=== PATIENT | female | born 1950 | race Caucasian/White ===

== ENCOUNTER 2017-09-15 19:08 | Inpatient (IN) ==
--- OUTSIDE RECORDS SUMMARY | 2017-09-15 19:21 | External Medical Summary ---
:1950 Author Organization [facility]. Summary purpose CCDA Sent to [facility] Chief Complaint and Reason for Visit Admit Diagnosis 1 729.5 Problem list No authorized problems tracked for continuity of care are available for this visit. Encounters No authorized problems tracked for encounter diagnoses are available for this visit. Medications No medications recorded for this patient visit Allergies, adverse reactions, alerts Allergen Category Ingredient Status Reaction Severity Onset omeprazole Drug omeprazole Active Nausea Year/Month lisinopril Drug lisinopril Active cough Year/Month aspirin Drug aspirin Active Rash Year/Month Augmentin Drug Augmentin Active Augmentin Drug Amoxicillin Active Augmentin Drug clavulanic acid Active Altace Drug Altace Active Altace Drug ramipril Active Immunizations No immunizations recorded for this patient visit Relevant diagnostic tests and/or laboratory data No authorized results are available for this patient visit History of procedures No procedures recorded for this patient visit. Functional status No functional or cognitive status observations are available for this visit. Vital signs No authorized vital signs are available for this visit. Social history No Social History or smoking status observations were recorded for this visit. ( Unknown if ever smoked.) Treatment Plan No treatment plan text is available for this visit. Hospital discharge instructions No discharge instruction text is available for this visit.
--- OUTSIDE RECORDS SUMMARY | 2017-09-15 19:21 | External Medical Summary ---
:1950 Author Organization [facility]. Summary purpose CCDA Sent to [facility] Chief Complaint and Reason for Visit No authorized Reason for Visit (Admitting Diagnosis) is available for this visit. Problem list No authorized problems tracked for [...] visit Relevant diagnostic tests and/or laboratory data RESULTS Chemistry Group [id number]:00 Result Normal Range Units Sodium 140 134-145 mmol/L Potassium 4.4 3.6-5.0 mmol/L Chloride 102 98-107 mmol/L CO2 26 22-30 mmol/L Glucose 95 75-110 mg/dl BUN H 22 9-20 mg/dl Creatinine H 1.81 0.8-1.7 mg/dl Calcium L 8.1 8.4-10.2 mg/dl History of procedures No procedures recorded for [...]
--- OUTSIDE RECORDS SUMMARY | 2017-09-15 19:21 | External Medical Summary ---
:1950 Author Organization [facility]. Summary purpose CCDA Sent to [facility] Chief Complaint and Reason for Visit No [...] for this patient visit History of procedures Procedure Code Code Type Description Date Performed Performing Physician 59775 CPT-4 KHUSHI, DNA, DIR 12-10-2016 CARLITOS ULLOM [place] PROBE 86427 CPT-4 MCMILLAN VAG, DNA, DIR 12-10-2016 CARLITOS ULLOM [place] PROBE 27078 CPT-4 TRICHOMONAS VAGIN, DIR 12-10-2016 CARLITOS ULLOM [place] PROBE Functional status No functional or cognitive status [...]
--- OUTSIDE RECORDS SUMMARY | 2017-09-15 19:21 | External Medical Summary ---
:1950 Author Organization [facility]. Summary purpose CCDA Sent to [facility] Chief Complaint and Reason for Visit No [...] tests and/or laboratory data RESULTS Chemistry Group [id number]:00 Result Normal Range Units Sodium 134 134-145 mmol/L Potassium H 5.1 3.6-5.0 mmol/L Chloride 98 98-107 mmol/L CO2 24 22-30 mmol/L Glucose H 117 75-110 mg/dl BUN 20 9-20 mg/dl Creatinine 1.46 0.8-1.7 mg/dl eGFR 36 ml/min. Calcium 8.9 8.4-10.2 mg/dl Special Chemistry Group [id number]:00 Result Normal Range Units Hemoglobin A1C H 7.5 4.2-6.5 % History of procedures No procedures recorded for [...]
--- OUTSIDE RECORDS SUMMARY | 2017-09-15 19:21 | External Medical Summary ---
:1950 Author Organization [facility]. Summary purpose CCDA Sent to [facility] Chief Complaint and Reason for Visit Admit Diagnosis 1 FEVER Problem list Condition Status Certainty Chronicity Onset .Fever; Verified UTI Resolved Encounters The following conditions tracked for encounter diagnoses were recorded for this visit: Finding or Diagnosis Status Certainty Chronicity Onset .Fever; Verified UTI Resolved Medications Discharge Medications Status Medication Directions Current acetaminophen (TYLENOL) 500 mg: TABLET 500 MG oral EVERY FOUR HOURS NEEDED for PAIN OR FEVER Current Aspirin Child 81 mg chewable tablet 1 tab(s) oral DAILY Current Bactrim DS 800 mg-160 mg tablet 800 tab(s) oral BID Current Carafate 1 gram tablet 1 tab(s) oral BEFORE MEALS Current Cheratussin 100 mg/5 mL syrup 5 milliliter(s) oral oral BID NEEDED for cough Current cholecalciferol (vitamin D3) 1,000 unit 1 tab(s) oral DAILY capsule Current docusate sodium 100 mg tablet 1 capsule(s) oral DAILY Current escitalopram 20 mg tablet 1 tab(s) oral DAILY Current hydrALAZINE 10 mg tablet 1 tab(s) oral BID Current levothyroxine 200 mcg tablet 1 tab(s) oral DAILY Current levothyroxine 25 mcg capsule 1 tab(s) oral DAILY Current losartan 50 mg tablet 1 tab(s) oral DAILY Current Multi Vitamin oral 1 tab(s) oral DAILY Current Neurontin 300 mg capsule 1 tab(s) oral HS Current Nexium 20 mg capsule,delayed release 1 tab(s) oral BEFORE BREAKFAST AND SUPPER Current [place] 5 mg-325 mg tablet 1 tab(s) oral oral TID NEEDED for pain Current propranolol ER 160 mg capsule,24 1 capsule(s) oral BID hr,extended release Current QUEtiapine 50 mg tablet 1 tab(s) oral DAILY AT 8 AM Current traZODone 50 mg tablet 1-2 tab(s) oral HS Current Tums 200 mg calcium (500 mg) chewable 1 tab(s) oral oral TID NEEDED tablet for reflux Current Vitamin B-12 1,000 mcg tablet 1 tab(s) oral DAILY Current ziprasidone 80 mg capsule 1 capsule(s) oral BID Stopped acetaminophen 500 mg capsule 1 capsule(s) oral EVERY SIX HOURS NEEDED 1-2 tabs Stopped acetaminophen 500 mg tablet 2 tab(s) oral HS NEEDED Stopped polyethylene glycol 3350 17 gram/dose 17 gram(s) oral DAILY oral powder 1 capful (17grams) in 8 oz water Stopped Simethicone-80 80 mg chewable tablet 1 tab(s) oral AFTER MEALS NEEDED Stopped traMADol 50 mg tablet 1-2 tab(s) oral NEEDED TID prn pain Allergies, adverse reactions, alerts Allergen Category Ingredient [...] Relevant diagnostic tests and/or laboratory data RESULTS :45:00 Discharge Summary Patient ambulated to waiting halfway van with ease and fastened her seat belt in the front seat. Departed at this time. [id number]:54:06 Discharge Summary Pt admitted with abd pain and fever - improves on IV antibx. Known UTI. [id number]:10:57 Discharge Summary pt here with fever and unable to void CBC :05:00 Result Normal Range Units WBC L 2.99 4.8-10.8 x103/mm3 Neutrophil % 59.2 50-70 % Lymph % L 11.0 20-50 % [place] % H 20.4 1.0-9.0 % Eosinophil % H 8.7 0-4 % Basophil % 0.7 0-2 % Neutrophil # L 1.77 3.0-7.0 x103/mm3 Lymph # L 0.33 1.0-4.0 x103/mm3 [place] # 0.61 0.0-0.8 x103/mm3 Eosinophil # 0.26 0-0.5 x103/mm3 Basophil # 0.02 0-0.2 x103/mm3 RBC L 3.43 4.20-5.40 x103/mm3 HGB L 10.6 12.0-16.0 g/dl HCT L 32.3 37.0-47.0 % MCV 94.2 81-99 FL MCH 30.9 27.0-31.0 pg MCHC 32.8 32.0-36.0 g/dl RDW L 11.6 12-15 % Platelet L 118 150-400 x103/mm3 MPV 9.2 6.0-10.0 FL :35:00 Result Normal Range Units WBC 5.79 4.8-10.8 x103/mm3 Neutrophil % H 78.1 50-70 % Lymph % L 3.5 20-50 % [place] % H 14.0 1.0-9.0 % Eosinophil % H 4.1 0-4 % Basophil % 0.3 0-2 % Neutrophil # 4.52 3.0-7.0 x103/mm3 Lymph # L 0.20 1.0-4.0 x103/mm3 [place] # H 0.81 0.0-0.8 x103/mm3 Eosinophil # 0.24 0-0.5 x103/mm3 Basophil # 0.02 0-0.2 x103/mm3 RBC L 3.91 4.20-5.40 x103/mm3 HGB 12.3 12.0-16.0 g/dl HCT L 36.7 37.0-47.0 % MCV 93.9 81-99 FL MCH H 31.5 27.0-31.0 pg MCHC 33.5 32.0-36.0 g/dl RDW 12.0 12-15 % Platelet L 135 150-400 x103/mm3 MPV 9.6 6.0-10.0 FL :50:00 Result Normal Range Units WBC 5.62 4.8-10.8 x103/mm3 Neutrophil % H 80.7 50-70 % Lymph % L 2.3 20-50 % [place] % H 14.8 1.0-9.0 % Eosinophil % 1.8 0-4 % Basophil % 0.4 0-2 % Neutrophil # 4.54 3.0-7.0 x103/mm3 Lymph # L 0.13 1.0-4.0 x103/mm3 [place] # H 0.83 0.0-0.8 x103/mm3 Eosinophil # 0.10 0-0.5 x103/mm3 Basophil # 0.02 0-0.2 x103/mm3 RBC L 4.14 4.20-5.40 x103/mm3 HGB 12.8 12.0-16.0 g/dl HCT 38.4 37.0-47.0 % MCV 92.8 81-99 FL MCH 30.9 27.0-31.0 pg MCHC 33.3 32.0-36.0 g/dl RDW L 11.7 12-15 % Platelet 156 150-400 x103/mm3 MPV 9.3 6.0-10.0 FL Urinalysis [id number]:30:00 Result Normal Range Units Site CATH Color Yellow Urine Appearance Clear Specific [place] 1.020 1.005-1.030 pH 6.2 5.0-9.0 Protein AB 1+ Negative Glucose Negative Negative Ketones Negative Negative Bilirubin Negative Negative Blood Negative Negative Nitrite Negative Negative Urobilinogen H 1.0 0.20 mg/dl Leukocyte Negative Negative Chemistry Group [id number]:00 Result Normal Range Units Sodium L 133 134-145 mmol/L Potassium 4.9 3.6-5.0 mmol/L Chloride 103 98-107 mmol/L CO2 24 22-30 mmol/L Glucose H 156 75-110 mg/dl BUN 20 9-20 mg/dl Creatinine H 1.78 0.8-1.7 mg/dl eGFR 28 ml/min. Calcium L 7.8 8.4-10.2 mg/dl [id number]:35:00 Result Normal Range Units Sodium 134 134-145 mmol/L Potassium 5.0 3.6-5.0 mmol/L Chloride 99 98-107 mmol/L CO2 25 22-30 mmol/L Glucose H 159 75-110 mg/dl BUN H 25 9-20 mg/dl Creatinine H 2.37 0.8-1.7 mg/dl eGFR 20 ml/min. Calcium L 8.0 8.4-10.2 mg/dl [id number]:50:00 Result Normal Range Units Sodium 135 134-145 mmol/L Result Amended on 2016-07-31 at 10:28:09. Previous status was FR. Potassium H 5.1 3.6-5.0 mmol/L Result Amended on 2016-07-31 at 10:28:09. Previous status was FR. Chloride 98 98-107 mmol/L Result Amended on 2016-07-31 at 10:28:09. Previous status was FR. CO2 28 22-30 mmol/L Result Amended on 2016-07-31 at 10:28:09. Previous status was FR. Glucose H 154 75-110 mg/dl Result Amended on 2016-07-31 at 10:28:09. Previous status was FR. BUN H 24 9-20 mg/dl Result Amended on 2016-07-31 at 10:28:09. Previous status was FR. Creatinine HC 2.56 0.8-1.7 mg/dl Result Amended on 2016-07-31 at 10:28:09. Previous status was FR. CALLED TO NURSING/YEISON @ 10:25 BY MR eGFR 19 ml/min. Result Amended on 2016-07-31 at 10:28:09. Previous status was FR. Total Protein 6.5 6.3-8.2 g/dl Result Amended on 2016-07-31 at 10:28:09. Previous status was FR. Albumin L 3.3 3.5-5.0 g/dl Result Amended on 2016-07-31 at 10:28:09. Previous status was FR. Calcium L 8.2 8.4-10.2 mg/dl Result Amended on 2016-07-31 at 10:28:09. Previous status was FR. Alk Phos 121 38-126 U/L Result Amended on 2016-07-31 at 10:28:09. Previous status was FR. AST H 93 14-36 U/L Result Amended on 2016-07-31 at 10:28:09. Previous status was FR. ALT 53 11-66 U/L Result Amended on 2016-07-31 at 10:28:09. Previous status was FR. T Bili .7 0.2-1.3 mg/dl Result Amended on 2016-07-31 at 10:28:09. Previous status was FR. A/G Ratio 1.0 Ratio Result Amended on 2016-07-31 at 10:28:09. Previous status was FR. Urinalysis with Microscopic [id number]:30:00 Result Normal Range Units Site CATH Color Yellow Urine Appearance Clear Specific [place] 1.020 1.005-1.030 pH 6.2 5.0-9.0 Protein AB 1+ Negative Glucose Negative Negative Ketones Negative Negative Bilirubin Negative Negative Blood Negative Negative Nitrite Negative Negative Urobilinogen H 1.0 0.20 mg/dl Leukocyte Negative Negative History of procedures No procedures recorded for this patient visit. Functional status Functional Status Finding Observation Time Dexterity Right-handed :00 Weight Bearing Statu Full 22-21-665714:05 Transferring/Ambulat Needs Assistance :00 Bathing Needs Assistance : Dressing Needs Assistance : Eating Independent : Drinking Needs Assistance : Toileting Needs Assistance : Able to Turn Self in Independent : Cognitive Status Finding Observation Time Level of Consciousne Alert 46-64-156860:21 Oriented to Person Yes :[address] Yes :21 Oriented to Time Yes :21 Combative Resolved 25-17-823209:00 Vital signs Type Value Date Respirations 20 57-67-759976:40 Pulse 64 51-07-229616:40 O2 Saturation 96% 11-78-897900:40 Systolic Blood Press 150mm/HG 27-29-347535:40 Diastolic Blood Pres 79mm/HG 17-20-687075:40 Temperature (Fahr) 98.3Degrees 31-92-068649:40 Height 63in :16 Weight 219.6LB 16-41-468819:16 Social history Type Value Smoking Status NEVER SMOKER Treatment Plan Treatment Plan at [facility] to [facility]. Hospital discharge instructions Diagnosis Abdominal pain Diet Low phosphorus, low potassium diet, may have diet holiday 1 meal/week. fluid restrictions or 1.5 liters/24 hrs. May have an extra 250 cc/24 hrs when she is feeling poorly. Consistent carbohydrate diet. Activity Level As tolerated, may participate in facility activities, may have whirlpool bath, may go out on therapeutic visits with necessary medications. Personal Items Retur Blankets. Med Dispensed by [facility] Flu Vaccine Given Current/Not Needed Pneumonia Vaccine Gi Current/Not Needed Follow up with [facility] Comment: Resident follow-up in clinic/office: In [place] at next visit day- sooner if problems or concerns.
--- OUTSIDE RECORDS SUMMARY | 2017-09-15 19:21 | External Medical Summary ---
:1950 Author Organization [facility]. Summary purpose CCDA Sent to [facility] Chief Complaint and Reason for Visit No authorized Reason for Visit (Admitting Diagnosis) is available for this visit. Problem list No authorized problems tracked for continuity of care are available for this visit. Encounters No authorized problems tracked for encounter diagnoses are available for this visit. Medications No home medications recorded for this patient visit Allergies, [...] tests and/or laboratory data RESULTS Chemistry Group [id number]:35:00 Sodium L 129 Potassium 4.9 Chloride L 91 CO2 29 Glucose 82 BUN H 29 Creatinine H 1.8 Calcium 8.9 History of procedures Procedure Code Code Type Description Date Performed Performing Physician 72659 CPT-4 METABOLIC PANEL TOTAL 04-02-2015 CARLITOS SHAWN SHANTELRAFA WALLACE Functional status No functional or cognitive status [...]
--- OUTSIDE RECORDS SUMMARY | 2017-09-15 19:21 | External Medical Summary ---
:1950 Author Organization [facility]. Summary purpose CCDA Sent to [facility] Chief Complaint and Reason for Visit [...] tests and/or laboratory data RESULTS Chemistry Group [id number]:10:00 Result Normal Range Units Sodium 139 134-145 mmol/L Potassium H 5.3 3.6-5.0 mmol/L Chloride 101 98-107 mmol/L CO2 28 22-30 mmol/L Glucose 107 75-110 mg/dl BUN H 24 9-20 mg/dl Creatinine H 2.02 0.8-1.7 mg/dl eGFR 25 ml/min. Calcium 8.6 8.4-10.2 mg/dl Special Chemistry Group [id number]:10:00 Result Normal Range Units Troponin I < 0.06 ng/ml NEGATIVE - 0.06-0.30 ng/ml INCONCLUSIVE - 0.31-0.64 ng/ml; Suggest Repeating in 2-4 hours POSITIVE - >0.64 ng/ml; Probable AMI BNP 29.0 0-100 pg/ml History of procedures Procedure Code Code Type Description Date Performed Performing Physician 81318 CPT-4 METABOLIC PANEL TOTAL 01-30-2016 DENISHA WALLACE 02775 CPT-4 NATRIURETIC PEPTIDE 01-30-2016 DENISHA HERNANDEZ 65903 CPT-4 ASSAY OF TROPONIN, 01-30-2016 DENISHA WILSON Functional status No functional or cognitive status [...]
--- OUTSIDE RECORDS SUMMARY | 2017-09-15 19:21 | External Medical Summary ---
:1950 Author Organization [facility]. Summary purpose CCDA Sent to [facility] Chief Complaint and Reason for Visit No [...]
--- OUTSIDE RECORDS SUMMARY | 2017-09-15 19:21 | External Medical Summary ---
:1950 Author Organization [facility]. Summary purpose CCDA Sent to [facility] Chief Complaint and Reason for Visit [...] Relevant diagnostic tests and/or laboratory data RESULTS CBC [id number]:19:00 Result Normal Range Units WBC L 3.59 4.8-10.8 x103/mm3 Neutrophil % 52.0 50-70 % Lymph % 28.7 20-50 % [place] % H 13.4 1.0-9.0 % Eosinophil % H 5.3 0-4 % Basophil % 0.6 0-2 % Neutrophil # L 1.87 3.0-7.0 x103/mm3 Lymph # 1.03 1.0-4.0 x103/mm3 [place] # 0.48 0.0-0.8 x103/mm3 Eosinophil # 0.19 0-0.5 x103/mm3 Basophil # 0.02 0-0.2 x103/mm3 RBC L 3.76 4.20-5.40 x103/mm3 HGB 12.0 12.0-16.0 g/dl HCT L 35.6 37.0-47.0 % MCV 94.7 81-99 FL MCH H 31.9 27.0-31.0 pg MCHC 33.7 32.0-36.0 g/dl RDW L 11.9 12-15 % Platelet 204 150-400 x103/mm3 MPV 9.4 6.0-10.0 FL Chemistry Group [id number]:00 Result Normal Range Units Sodium 140 134-145 mmol/L Potassium 4.7 3.6-5.0 mmol/L Chloride 100 98-107 mmol/L CO2 28 22-30 mmol/L Glucose 96 75-110 mg/dl BUN 20 9-20 mg/dl Creatinine H 1.91 0.8-1.7 mg/dl Calcium 8.5 8.4-10.2 mg/dl Special Chemistry Group :19:00 Result Normal Range Units Hemoglobin A1C 6.1 4.2-6.5 % History of procedures Procedure Code Code Type Description Date Performed Performing Physician 60200 CPT-4 METABOLIC PANEL TOTAL 10-29-2015 [place] [address] CPT-4 COMPLETE CBC, 10-29-2015 [facility] AUTOMATED 98258 CPT-4 GLYCOSYLATED HEMOGLOBIN 10-29-2015 [facility] TEST Functional status No functional or cognitive status [...]
--- OUTSIDE RECORDS SUMMARY | 2017-09-15 19:21 | External Medical Summary ---
:1950 Author Organization [facility]. Summary purpose CCDA Sent to [facility] Chief Complaint and Reason for Visit Admit Diagnosis 1 DM2/NOS UNCOMP NSU Problem list No authorized problems tracked for [...] Relevant diagnostic tests and/or laboratory data RESULTS Special Chemistry Group [id number]:00 Result Normal Range Units Hemoglobin A1C H 7.3 4.2-6.5 % History of procedures Procedure Code Code Type Description Date Performed Performing Physician 96502 CPT-4 GLYCOSYLATED HEMOGLOBIN 02-12-2015 MIGEL CARABALLO TEST Functional status No functional or cognitive [...]
--- OUTSIDE RECORDS SUMMARY | 2017-09-15 19:21 | External Medical Summary ---
:1950 Author Organization [facility]. Summary purpose CCDA Sent to [facility] Chief Complaint and Reason for [...]
--- OUTSIDE RECORDS SUMMARY | 2017-09-15 19:21 | External Medical Summary ---
:1950 Author Organization [facility]. Summary purpose CCDA Sent to [facility] Chief Complaint and Reason for Visit [...] Relevant diagnostic tests and/or laboratory data RESULTS Urinalysis [id number]:00:00 Result Normal Range Units Site VOID Result Amended on 2017-01-04 at 15:04:04. Previous status was FR. Color Yellow Result Amended on 2017-01-04 at 15:04:03. Previous status was FR. Urine Appearance Clear Result Amended on 2017-01-04 at 15:04:03. Previous status was FR. Specific [place] 1.015 1.005-1.030 Result Amended on 2017-01-04 at 15:04:03. Previous status was FR. pH 5.5 5.0-9.0 Result Amended on 2017-01-04 at 15:04:04. Previous status was FR. Protein AB 2+ Negative Result Amended on 2017-01-04 at 15:04:04. Previous status was FR. Glucose Negative Negative Result Amended on 2017-01-04 at 15:04:04. Previous status was FR. Ketones Negative Negative Result Amended on 2017-01-04 at 15:04:04. Previous status was FR. Bilirubin Negative Negative Result Amended on 2017-01-04 at 15:04:04. Previous status was FR. Blood Negative Negative Result Amended on 2017-01-04 at 15:04:04. Previous status was FR. Nitrite Negative Negative Result Amended on 2017-01-04 at 15:04:04. Previous status was FR. Urobilinogen 0.2 0.20 mg/dl Result Amended on 2017-01-04 at 15:04:04. Previous status was FR. Leukocyte AB 1+ Negative Result Amended on 2017-01-04 at 15:04:04. Previous status was FR. SUBMITTED FOR C & S. Reference Lab Group [id number]:00 Result Normal Range Units Culture Urine See Comment .Site: Received : 01/04/17 20:26 .Order#: [id number] Urine Culture FINAL 01/06/17 07:23 S .Proteus mirabilis .10-50,000 cfu/ml . P. mirab. Antibiotic KARINA INT Ampicillin <=2 S Ampicillin/sulbactam <=2 S Cefazolin<=4 S Ceftriaxone<=1 S Ciprofloxacin <=0.25 S Gentamicin <=1 S Nitrofurantoin 128 R Piperacillin/tazobactam<=4 S Trimethoprim/Sulfa <=20 S .S=SUSCEPTIBLE I=INTERMEDIATE R=RESISTANT S-DD=SUSCEPTIBLE, DOSE DEPENDENT .S: Performed at:[facility], [place], [place] CLIA#[id number] MOREL FOR RESULTS: * - NEW RESULT - RESULT WAS MODIFIED AFTER FINAL STATUS SET Urine Culture performed at [facility] Reference Lab, [address], [place] [address] Clinical Rehab Liaison Mitzi Perkins, DO Urinalysis with Microscopic :00:00 Result Normal Range Units Site VOID Result Amended on 2017-01-04 at 15:04:04. Previous status was FR. Color Yellow Result Amended on 2017-01-04 at 15:04:03. Previous status was FR. Urine Appearance Clear Result Amended on 2017-01-04 at 15:04:03. Previous status was FR. Specific [place] 1.015 1.005-1.030 Result Amended on 2017-01-04 at 15:04:03. Previous status was FR. pH 5.5 5.0-9.0 Result Amended on 2017-01-04 at 15:04:04. Previous status was FR. Protein AB 2+ Negative Result Amended on 2017-01-04 at 15:04:04. Previous status was FR. Glucose Negative Negative Result Amended on 2017-01-04 at 15:04:04. Previous status was FR. Ketones Negative Negative Result Amended on 2017-01-04 at 15:04:04. Previous status was FR. Bilirubin Negative Negative Result Amended on 2017-01-04 at 15:04:04. Previous status was FR. Blood Negative Negative Result Amended on 2017-01-04 at 15:04:04. Previous status was FR. Nitrite Negative Negative Result Amended on 2017-01-04 at 15:04:04. Previous status was FR. Urobilinogen 0.2 0.20 mg/dl Result Amended on 2017-01-04 at 15:04:04. Previous status was FR. Leukocyte AB 1+ Negative Result Amended on 2017-01-04 at 15:04:04. Previous status was FR. SUBMITTED FOR C & S. History of procedures Procedure Code Code Type Description Date Performed Performing Physician 75372 CPT-4 URINALYSIS, AUTO, W/O 01-04-2017 DENISHA HERNANDEZ SCOPE 80940 CPT-4 URINE CULTURE/COLONY 01-04-2017 DENISHA HERNANDEZ COUNT 09307 CPT-4 MICROBE SUSCEPTIBLE, 01-04-2017 DENISHA HERNANDEZ KARINA 44849 CPT-4 URINE BACTERIA CULTURE 01-04-2017 DENISHA HERNANDEZ Functional status No functional or cognitive status [...]
--- OUTSIDE RECORDS SUMMARY | 2017-09-15 19:21 | External Medical Summary ---
:1950 Author Organization [facility]. Summary purpose CCDA Sent to [facility] Chief Complaint and Reason for [...] tests and/or laboratory data RESULTS Chemistry Group [id number]:00 Result Normal Range Units Sodium 141 134-145 mmol/L Potassium 5.0 3.6-5.0 mmol/L Chloride 103 98-107 mmol/L CO2 27 22-30 mmol/L Glucose 92 75-110 mg/dl BUN H 23 9-20 mg/dl Creatinine H 1.80 0.8-1.7 mg/dl Calcium 8.5 8.4-10.2 mg/dl History of procedures No procedures [...]
--- OUTSIDE RECORDS SUMMARY | 2017-09-15 19:21 | External Medical Summary ---
:1950 Author Organization [facility]. Summary purpose CCDA Sent to [facility] Chief Complaint and Reason for [...] tests and/or laboratory data RESULTS Chemistry Group [id number]:00 Result Normal Range Units Sodium L 133 134-145 mmol/L Potassium H 5.1 3.6-5.0 mmol/L Chloride 99 98-107 mmol/L CO2 25 22-30 mmol/L Glucose H 153 75-110 mg/dl BUN H 23 9-20 mg/dl Creatinine H 1.95 0.8-1.7 mg/dl eGFR 26 ml/min. Calcium 8.4 8.4-10.2 mg/dl History of procedures Procedure Code Code Type Description Date Performed Performing Physician 74511 CPT-4 METABOLIC PANEL TOTAL 03-03-2016 [place] [address] CPT-4 KHUSHI, DNA, DIR 03-03-2016 DENISHA HERNANDEZ PROBE 24067 CPT-4 MCMILLAN VAG, DNA, DIR 03-03-2016 DENISHA HERNANDEZ PROBE 03137 CPT-4 TRICHOMONAS VAGIN, DIR 03-03-2016 DENISHA HERNANDEZ PROBE Functional status No functional or cognitive [...]
--- OUTSIDE RECORDS SUMMARY | 2017-09-15 19:21 | External Medical Summary ---
:1950 Author Organization [facility]. Summary purpose CCDA Sent to [facility] Chief Complaint and Reason for Visit [...] diagnostic tests and/or laboratory data RESULTS CBC [id number]:40:00 Result Normal Range Units WBC 7.65 4.8-10.8 x103/mm3 Neutrophil % H 72.7 50-70 % Lymph % L 11.0 20-50 % [place] % H 11.9 1.0-9.0 % Eosinophil % 3.9 0-4 % Basophil % 0.5 0-2 % Neutrophil # 5.56 3.0-7.0 x103/mm3 Lymph # L 0.84 1.0-4.0 x103/mm3 [place] # H 0.91 0.0-0.8 x103/mm3 Eosinophil # 0.30 0-0.5 x103/mm3 Basophil # 0.04 0-0.2 x103/mm3 RBC 4.20 4.20-5.40 x103/mm3 HGB 13.2 12.0-16.0 g/dl HCT 41.1 37.0-47.0 % MCV 97.9 81-99 FL MCH H 31.4 27.0-31.0 pg MCHC 32.1 32.0-36.0 g/dl RDW 13.1 12-15 % Platelet 229 150-400 x103/mm3 MPV 9.8 6.0-10.0 FL Chemistry Group [id number]:47:00 Result Normal Range Units Total Protein 6.3 6.3-8.2 g/dl Albumin L 3.3 3.5-5.0 g/dl Alk Phos 120 38-126 U/L AST H 107 14-36 U/L ALT 54 11-66 U/L T Bili .5 0.2-1.3 mg/dl D Bili 0.0 0.0-0.3 mg/dl I Bili .1 0.0-1.1 mg/dl History of procedures Procedure Code Code Type Description Date Performed Performing Physician 51431 CPT-4 HEPATIC FUNCTION PANEL 05-21-2015 CORBY HOLT 01028 CPT-4 COMPLETE CBC, 05-21-2015 CORBY HOLT AUTOMATED Functional status No functional or cognitive status [...]
--- OUTSIDE RECORDS SUMMARY | 2017-09-15 19:21 | External Medical Summary ---
:1950 Author Organization [facility]. Summary purpose CCDA Sent to [facility] Chief Complaint and Reason for Visit [...]
--- OUTSIDE RECORDS SUMMARY | 2017-09-15 19:21 | External Medical Summary ---
:1950 Author Organization [facility]. Summary purpose CCDA Sent to [facility] Chief Complaint and Reason for [...] diagnostic tests and/or laboratory data RESULTS CBC [id number]:40:00 Result Normal Range Units WBC L 4.16 4.8-10.8 x103/mm3 Neutrophil % 57.0 50-70 % Lymph % 24.3 20-50 % [place] % H 13.2 1.0-9.0 % Eosinophil % H 5.0 0-4 % Basophil % 0.5 0-2 % Neutrophil # L 2.37 3.0-7.0 x103/mm3 Lymph # 1.01 1.0-4.0 x103/mm3 [place] # 0.55 0.0-0.8 x103/mm3 Eosinophil # 0.21 0-0.5 x103/mm3 Basophil # 0.02 0-0.2 x103/mm3 RBC L 3.95 4.20-5.40 x103/mm3 HGB 12.5 12.0-16.0 g/dl HCT 37.4 37.0-47.0 % MCV 94.7 81-99 FL MCH H 31.6 27.0-31.0 pg MCHC 33.4 32.0-36.0 g/dl RDW L 11.7 12-15 % Platelet 200 150-400 x103/mm3 MPV 9.4 6.0-10.0 FL Urinalysis :30:00 Result Normal Range Units Site CC Color Yellow Urine Appearance Clear Specific [place] 1.015 1.005-1.030 pH 6.0 5.0-9.0 Protein AB 1+ Negative Glucose Negative Negative Ketones Negative Negative Bilirubin Negative Negative Blood Negative Negative Nitrite Negative Negative Urobilinogen H 1.0 0.20 mg/dl Leukocyte AB 2+ Negative C&S SENT Urine Bacteria Trace Urine RBC N0-2 Urine WBC N6-10 Chemistry Group :40:00 Result Normal Range Units Sodium 140 134-145 mmol/L Result Amended on 2015-11-26 at 15:38:15. Previous status was [place]. Potassium H 5.1 3.6-5.0 mmol/L Result Amended on 2015-11-26 at 15:38:15. Previous status was [place]. Chloride 102 98-107 mmol/L Result Amended on 2015-11-26 at 15:38:15. Previous status was [place]. CO2 27 22-30 mmol/L Result Amended on 2015-11-26 at 15:38:15. Previous status was [place]. Glucose 96 75-110 mg/dl Result Amended on 2015-11-26 at 15:38:15. Previous status was [place]. BUN H 25 9-20 mg/dl Result Amended on 2015-11-26 at 15:38:15. Previous status was [place]. Creatinine H 2.10 0.8-1.7 mg/dl Result Amended on 2015-11-26 at 15:38:15. Previous status was [place]. eGFR 29 ml/min. Result Amended on 2015-11-26 at 15:38:15. Previous status was [place]. Albumin L 2.8 3.5-5.0 g/dl Result Amended on 2015-11-26 at 15:38:15. Previous status was [place]. Calcium 8.6 8.4-10.2 mg/dl Result Amended on 2015-11-26 at 15:38:15. Previous status was [place]. Cholesterol H 171 130-170 mg/dl Triglyceride H 313 < 200 mg/dl HDL L 30 40-60 mg/dl LDL Bill 79 30-100 mg/dl VLDL 63 0 Chol/HDL H 5.76 0.00-5.00 Ratio Uric Acid 7.2 3.5-8.5 mg/dl Bun/Creat 11.8 Ratio Result Amended on 2015-11-26 at 15:38:15. Previous status was [place]. Reference Lab Group :40:00 Result Normal Range Units Culture Urine See Comment Result Amended on 2015-11-28 at 09:23:52. Previous status was FR. Comment deleted 11/28/2015 09:21 by [facility] : .Site: Received : 11/26/15 19:38 .Order#: [id number] Urine Culture PRELIM 11/27/15 11:38 .No growth MOREL FOR RESULTS: * - NEW RESULT - RESULT WAS MODIFIED AFTER FINAL STATUS SET Urine Culture performed at [facility] Reference Lab, [address] [place] [address] Inpatient Auditor Mitzi Perkins DO .Site: Received : 11/26/15 19:38 .Order#: [id number] Urine Culture FINAL 11/28/15 09:20 .Normal urogenital/skin wild present MOREL FOR RESULTS: * - NEW RESULT - RESULT WAS MODIFIED AFTER FINAL STATUS SET Urine Culture performed at [facility] Reference Lab, [address] [place] [address] Inpatient Auditor Mitzi Perkins DO Test Culture Urine with result ofSee Comment was originally reported as See Comment and was changed on 11/28/2015 09:21 by [facility] [id number]:30:00 Result Normal Range Units Protein Urine H 24 1-14 mg/dL Creatinine Urine 113 mg/dL Protein/Creat. Ratio, U 0.2 Less than or equal to 0.1=Trace 0.2 - 1.0=Low grade proteinuria 1.1 - 3.5=Moderate proteinuria >3.5=Consistent with nephrotic syndrome. Protein/Creatinine Ratio, Urine performed at [facility] Reference Lab, [address] [place] [address] Inpatient Auditor Mitzi Perkins DO :40:00 Result Normal Range Units Phosphorus H 5.2 2.3-4.7 mg/dL Phosphorus performed at [facility] Reference Lab, [address] [place] [address] Inpatient Auditor Mitzi Perkins DO Vitamin D-25 Hydroxy 33 30-74 ng/mL The desirable level of 25-Hydroxy Vitamin D Total(D2 + D3) is 30-74 ng/mL. A level consistently >200 is potentially toxic. Vitamin D, 25-Hydroxy performed at [facility] Reference Lab, [address] [place] [address] Inpatient Auditor Mitzi Perkins DO Vitamin D2 25-Hydroxy < 7 ng/mL Vitamin D3 25-Hydroxy 33 ng/mL PTH 30.8 6.6-88.9 pg/mL PTH (Parathyroid Hormone) performed at [facility] Reference Lab, [address] [place] [address] Inpatient Auditor Mitzi Perkins DO Urinalysis with Microscopic [id number]:30:00 Result Normal Range Units Site CC Color Yellow Urine Appearance Clear Specific [place] 1.015 1.005-1.030 pH 6.0 5.0-9.0 Protein AB 1+ Negative Glucose Negative Negative Ketones Negative Negative Bilirubin Negative Negative Blood Negative Negative Nitrite Negative Negative Urobilinogen H 1.0 0.20 mg/dl Leukocyte AB 2+ Negative C&S SENT Urine Bacteria Trace Urine RBC N0-2 Urine WBC N6-10 History of procedures No procedures recorded for [...]
--- OUTSIDE RECORDS SUMMARY | 2017-09-15 19:22 | External Medical Summary ---
:1950 Author Organization [employer] Care Team Providers Name Role Phone Gerard Caldwell Provider Role Unavailable Allergies No Known Allergies Problems Problem Type Condition Code Onset Dates Condition Status Problem Diabetes E11.9 Active Problem Hypertension I10 Active Medications No Known Medications Results No Known Results Summary Purpose [employer]Clinical[employer] Submission
--- OUTSIDE RECORDS SUMMARY | 2017-09-15 19:22 | External Medical Summary ---
:[address] [facility]. Summary purpose CCDA Sent to [facility] Chief Complaint and Reason for Visit [...] tests and/or laboratory data RESULTS Chemistry Group [id number]:10:00 Result Normal Range Units Sodium 135 134-145 mmol/L Potassium HC 5.6 3.6-5.0 mmol/L CALLED CHRISTOPHER 12/14/16 09:03 MAC Chloride 102 98-107 mmol/L CO2 25 22-30 mmol/L Glucose H 143 75-110 mg/dl BUN H 23 9-20 mg/dl Creatinine 1.67 0.8-1.7 mg/dl eGFR 31 ml/min. Calcium 8.9 8.4-10.2 mg/dl History of procedures Procedure Code Code Type Description Date Performed Performing Physician 58169 CPT-4 METABOLIC PANEL TOTAL 12-14-2016 DENISHA WALLACE Functional status No functional or cognitive [...]
--- OUTSIDE RECORDS SUMMARY | 2017-09-15 19:22 | External Medical Summary ---
:1950 Author Organization [facility]. Summary purpose CCDA Sent to [facility] Chief Complaint and Reason for Visit [...] tests and/or laboratory data RESULTS Chemistry Group [id number]:43:00 Result Normal Range Units Sodium 138 134-145 mmol/L Potassium H 5.2 3.6-5.0 mmol/L Chloride 104 98-107 mmol/L CO2 24 22-30 mmol/L Glucose 96 75-110 mg/dl BUN H 27 9-20 mg/dl Creatinine H 1.8 0.8-1.7 mg/dl Calcium 8.6 8.4-10.2 mg/dl Special Chemistry Group [id number]:43:00 Result Normal Range Units Free T4 0.89 0.75-1.54 ng/dl TSH 3.93 0.50-6.00 uIU/mL History of procedures No procedures recorded for [...]
--- OUTSIDE RECORDS SUMMARY | 2017-09-15 19:22 | External Medical Summary ---
:1950 Author Organization [facility]. Summary purpose CCDA Sent to [facility] Chief Complaint and Reason for Visit [...]
--- OUTSIDE RECORDS SUMMARY | 2017-09-15 19:22 | External Medical Summary ---
:1950 Author Organization [employer] Care Team Providers Name Role Phone Leo Diamond Provider Role Unavailable Allergies, Adverse Reactions, Alerts Substance Reaction Event Type Reglan Info Not Available Drug Allergy Omeprazole Info Not Available Drug Allergy Lisinopril Info Not Available Drug Allergy Aspirin Info Not Available Drug Allergy Problems Problem Type Condition Code Onset Dates Condition Status Assessment Encounter for dental examination and Z01.20 Active cleaning without abnormal findings Medications Medication Code Code Instructions Start End Date Status Dosage System Date ZyrTEC [facility] 0 not defined Refresh Optive [facility] 43061-03 not defined Advanced 07-10 Milk of Magnesia [facility] 78626-16 not defined 32-40 Carafate [facility] 66719-66 not defined 04-01 Lansoprazole [facility] 54554-14 not defined 80-03 Seroquel [facility] 68855-78 not defined 79-10 [place] [address]-36 not defined 00-08 MiraLax [facility] 46938-38 not defined 34-02 Loperamide HCl [facility] 02887-97 not defined 45-26 [place] [address]-15 not defined 23-10 [place] [address]-62 not defined 25-22 Ziprasidone HCl [facility] 93493-69 not defined 72-08 Quetiapine Fumarate [facility] 49476-87 not defined 30-25 Levothyroxine [facility] 47233-30 not defined Sodium 49-07 Trazodone HCl [facility] 41747-09 not defined 74-01 Vitamin B 12 [facility] 89017-11 not defined 581 [place] [address]-11 not defined 72-01 Escitalopram [facility] 79410-62 not defined Oxalate 69-24 [place] [address]-74 not defined 98-53 HydrALAZINE HCl [facility] 01268-72 not defined 01-25 [place] [address]-30 not defined 76-03 Mylanta [facility] 53804-63 not defined 024 [place] [facility] 12334-09 not defined 51-30 Procedures Procedure Coding System Code Date PANORAMIC FILM SEE ALSO CODE 82681 CPT-4 D0330 October 07, 2015 JACQUES [place] DENTAL PAIN-MINOR PROC CPT-4 D9110 October 07, 2015 LTD ORAL EVALUATION - PROBLEM FOCUS CPT-4 D0140 October 07, 2015 Results No Known Results Summary Purpose eClinicalWorks Submission
--- OUTSIDE RECORDS SUMMARY | 2017-09-15 19:22 | External Medical Summary ---
:1950 Author Organization [facility]. Summary purpose CCDA Sent to [facility] Chief Complaint and Reason for Visit No [...] diagnostic tests and/or laboratory data RESULTS Urinalysis [id number]:15:00 Result Normal Range Units Site VOID Result Amended on 2015-04-30 at 08:55:41. Previous status was [place]. Color Yellow Result Amended on 2015-04-30 at 08:55:41. Previous status was [place]. Urine Appearance SLCLOUDY Specific [place] 1.020 1.005-1.030 Result Amended on 2015-04-30 at 08:55:41. Previous status was [place]. pH 6.0 5.0-9.0 Result Amended on 2015-04-30 at 08:55:41. Previous status was [place]. Protein AB 2+ Negative Result Amended on 2015-04-30 at 08:55:41. Previous status was [place]. Glucose Negative Negative Result Amended on 2015-04-30 at 08:55:41. Previous status was [place]. Ketones Negative Negative Result Amended on 2015-04-30 at 08:55:41. Previous status was [place]. Bilirubin Negative Negative Result Amended on 2015-04-30 at 08:55:41. Previous status was [place]. Blood Negative Negative Result Amended on 2015-04-30 at 08:55:41. Previous status was [place]. Nitrite Negative Negative Result Amended on 2015-04-30 at 08:55:41. Previous status was [place]. Urobilinogen 0.2 0.20 mg/dl Result Amended on 2015-04-30 at 08:55:41. Previous status was [place]. Leukocyte AB Trace Negative Result Amended on 2015-04-30 at 08:55:41. Previous status was [place]. Squamous Epi's N16-20 Urine Bacteria 2+ Urine Comments NEW SPECIMEN IS REQUESTED IF CULTURE IS DESIRED. CALLED TO BHAVANA DUNHAM.04/30/15 08:53 LL Urine WBC N11-15 Chemistry Group :30:00 Result Normal Range Units Sodium 138 134-145 mmol/L Result Amended on 2015-05-01 at 16:34:00. Previous status was [place]. Potassium 4.5 3.6-5.0 mmol/L Result Amended on 2015-05-01 at 16:34:00. Previous status was FR. Chloride 102 98-107 mmol/L Result Amended on 2015-05-01 at 16:34:00. Previous status was [place]. CO2 28 22-30 mmol/L Result Amended on 2015-05-01 at 16:34:00. Previous status was [place]. Glucose 106 75-110 mg/dl Result Amended on 2015-05-01 at 16:34:00. Previous status was [place]. BUN 20 9-20 mg/dl Result Amended on 2015-05-01 at 16:34:00. Previous status was FR. Creatinine 1.6 0.8-1.7 mg/dl Result Amended on 2015-05-01 at 16:34:00. Previous status was [place]. Albumin L 2.9 3.5-5.0 g/dl Result Amended on 2015-05-01 at 16:34:00. Previous status was FR. Calcium L 8.2 8.4-10.2 mg/dl Result Amended on 2015-05-01 at 16:34:00. Previous status was FR. Uric Acid 6.7 3.5-8.5 mg/dl Bun/Creat 12.2 Ratio Result Amended on 2015-05-01 at 16:34:00. Previous status was FR. Special Chemistry Group :30:00 Result Normal Range Units BNP 33 0-100 pg/ml Hemoglobin A1C 6.5 4.2-6.5 % Reference Lab Group [id number]:15:00 Result Normal Range Units Culture Urine See Comment .Site: Received : 04/30/15 19:56 .Order#: [id number] Urine Culture FINAL 05/03/15 06:27 .Citrobacter koseri . 30-50,000 cfu/ml .Citrobacter freundii . 10-30,000 cfu/ml . C. koseriC. freun. Antibiotic KARINA INT MICINT Cefazolin<=4 S>=64R Ceftriaxone<=1 S<=1 S Ciprofloxacin <=0.25 S <=0.25 S Gentamicin <=1 S<=1 S [id number] S<=16S Trimethoprim/Sulfa <=20 S<=20S .S=SUSCEPTIBLE I=INTERMEDIATE R=RESISTANT S-DD=SUSCEPTIBLE, DOSE DEPENDENT MOREL FOR RESULTS: * - NEW RESULT - RESULT WAS MODIFIED AFTER FINAL STATUS SET Urine Culture performed at [facility] Reference Lab, [address] [place] [address] Pulp Grinder Feeder Mitzi Perkins, DO :30:00 Result Normal Range Units Albumin Fraction 2.9 2.6-4.5 g/dL Jrtjv-4-Gqccdjpp 0.3 0.3-0.5 g/dL Vxgmf-9-Hgdlpxif 0.7 0.6-1.2 g/dL Gamma Fraction 0.8 0.4-1.7 g/dL Comment see below Normal electrophoretic pattern. Protein L 5.4 6.2-8.1 g/dL Albumin % 54.3 48.7-61.8 % Alpha-1 % 5.5 3.4-8.3 % Alpha-2 % 13.1 8.4-17.5 % Beta-1 % 6.8 5.4-8.9 % Beta-1 Fraction 0.4 0.4-0.6 g/dL Beta-2 % 5.9 3.8-7.7 % Beta-2 Fraction 0.3 0.2-0.5 g/dL Gamma % 14.4 8.1-23.0 % Protein Electrophoresis, Serum performed at [facility] Reference Lab, [address] [place] [address] Pulp Grinder Feeder Mitzi Perkins, DO Phosphorus 4.4 2.3-4.7 mg/dL Phosphorus performed at [facility] Reference Lab, [address] [place] [address] Pulp Grinder Feeder Mitzi Perkins, DO Urinalysis with Microscopic :15:00 Result Normal Range Units Site VOID Result Amended on 2015-04-30 at 08:55:41. Previous status was [place]. Color Yellow Result Amended on 2015-04-30 at 08:55:41. Previous status was FR. Urine Appearance SLCLOUDY Specific [place] 1.020 1.005-1.030 Result Amended on 2015-04-30 at 08:55:41. Previous status was FR. pH 6.0 5.0-9.0 Result Amended on 2015-04-30 at 08:55:41. Previous status was FR. Protein AB 2+ Negative Result Amended on 2015-04-30 at 08:55:41. Previous status was FR. Glucose Negative Negative Result Amended on 2015-04-30 at 08:55:41. Previous status was FR. Ketones Negative Negative Result Amended on 2015-04-30 at 08:55:41. Previous status was FR. Bilirubin Negative Negative Result Amended on 2015-04-30 at 08:55:41. Previous status was FR. Blood Negative Negative Result Amended on 2015-04-30 at 08:55:41. Previous status was FR. Nitrite Negative Negative Result Amended on 2015-04-30 at 08:55:41. Previous status was FR. Urobilinogen 0.2 0.20 mg/dl Result Amended on 2015-04-30 at 08:55:41. Previous status was FR. Leukocyte AB Trace Negative Result Amended on 2015-04-30 at 08:55:41. Previous status was FR. Squamous Epi's N16-20 Urine Bacteria 2+ Urine Comments NEW SPECIMEN IS REQUESTED IF CULTURE IS DESIRED. CALLED TO BHAVANA DUNHAM.04/30/15 08:53 LLH Urine WBC N11-15 History of procedures No procedures recorded for [...]
--- OUTSIDE RECORDS SUMMARY | 2017-09-15 19:22 | External Medical Summary ---
:1950 Author Organization [facility]. Summary purpose CCDA Sent to [facility] Chief Complaint and Reason for Visit [...] tests and/or laboratory data RESULTS Chemistry Group [id number]:00 Result Normal Range Units Sodium 138 134-145 mmol/L Potassium 5.0 3.6-5.0 mmol/L Chloride 103 98-107 mmol/L CO2 26 22-30 mmol/L Glucose 102 75-110 mg/dl BUN H 23 9-20 mg/dl Creatinine H 1.9 0.8-1.7 mg/dl Calcium 8.4 8.4-10.2 mg/dl History of procedures Procedure Code Code Type Description Date Performed Performing Physician 60417 CPT-4 METABOLIC PANEL TOTAL 06-25-2015 CARLITOS WALLACE Functional status No functional or cognitive [...]
--- OUTSIDE RECORDS SUMMARY | 2017-09-15 19:22 | External Medical Summary ---
:1950 Author Organization [facility]. Summary purpose CCDA Sent to [facility] Chief Complaint and Reason for Visit No [...]
--- OUTSIDE RECORDS SUMMARY | 2017-09-15 19:22 | External Medical Summary ---
:1950 Author Organization [facility]. Summary purpose CCDA Sent to [facility] Chief Complaint and Reason for [...] tests and/or laboratory data RESULTS Chemistry Group [id number]:00 Result Normal Range Units Sodium 140 134-145 mmol/L Potassium H 5.2 3.6-5.0 mmol/L Chloride 105 98-107 mmol/L CO2 23 22-30 mmol/L Glucose H 119 75-110 mg/dl BUN H 22 9-20 mg/dl Creatinine H 1.72 0.8-1.7 mg/dl eGFR 30 ml/min. Calcium 8.7 8.4-10.2 mg/dl History of procedures Procedure Code Code Type Description Date Performed Performing Physician 70989 CPT-4 METABOLIC PANEL TOTAL 08-25-2016 DENISHA WALLACE Functional status No functional or [...]
--- OUTSIDE RECORDS SUMMARY | 2017-09-15 19:22 | External Medical Summary ---
:1950 Author Organization [facility]. Summary purpose CCDA Sent to [facility] Chief Complaint and Reason for Visit [...] tests and/or laboratory data RESULTS Chemistry Group [id number]:00 Result Normal Range Units Sodium 137 134-145 mmol/L Potassium 4.8 3.6-5.0 mmol/L Chloride 102 98-107 mmol/L CO2 28 22-30 mmol/L Glucose H 124 75-110 mg/dl BUN H 23 9-20 mg/dl Creatinine H 1.8 0.8-1.7 mg/dl Calcium 8.6 8.4-10.2 mg/dl History of procedures Procedure Code Code Type Description Date Performed Performing Physician 42249 CPT-4 METABOLIC PANEL TOTAL 05-14-2015 CARLITOS GUAJARDO RODRIGO Functional status No functional or cognitive status [...]
--- OUTSIDE RECORDS SUMMARY | 2017-09-15 19:22 | External Medical Summary ---
:1950 Author Organization [facility]. Summary purpose CCDA Sent to [facility] Chief Complaint and Reason for [...] tests and/or laboratory data RESULTS Chemistry Group [id number]:00 Result Normal Range Units Sodium 139 134-145 mmol/L Potassium H 5.5 3.6-5.0 mmol/L Chloride 106 98-107 mmol/L CO2 27 22-30 mmol/L Glucose H 131 75-110 mg/dl BUN H 28 9-20 mg/dl Creatinine 1.68 0.8-1.7 mg/dl eGFR 30 ml/min. Calcium L 8.3 8.4-10.2 mg/dl History of procedures Procedure Code Code Type Description Date Performed Performing Physician 66309 CPT-4 METABOLIC PANEL TOTAL 06-02-2016 DENISHA WALLACE Functional status No functional or [...]
--- OUTSIDE RECORDS SUMMARY | 2017-09-15 19:22 | External Medical Summary ---
:1950 Author Organization [facility]. Summary purpose CCDA Sent to [facility] Chief Complaint and Reason for Visit [...] and/or laboratory data RESULTS Special Chemistry Group [id number]:00 Result Normal Range Units Hemoglobin A1C 6.2 4.2-6.5 % History of procedures Procedure Code Code Type Description Date Performed Performing Physician 04801 CPT-4 GLYCOSYLATED HEMOGLOBIN 01-28-2016 DENISHA HERNANDEZ TEST Functional status No functional or cognitive [...]
--- OUTSIDE RECORDS SUMMARY | 2017-09-15 19:22 | External Medical Summary ---
:1950 Author Organization [facility]. Summary purpose CCDA Sent to [facility] Chief Complaint and Reason for Visit [...] Relevant diagnostic tests and/or laboratory data RESULTS Reference Lab Group [id number]:00 Result Normal Range Units Culture Urine See Comment .Site: Received : 07/29/16 20:30 .Order#: [id number] Urine Culture FINAL 07/31/16 09:57 S .No growth .S: Performed at:[place], [place] CLIA#[id number] MOREL FOR RESULTS: * - NEW RESULT - RESULT WAS MODIFIED AFTER FINAL STATUS SET Urine Culture performed at [facility] Reference Lab, [facility] [place] [address] Box Closing Machine Operator Mitzi Perkins DO History of procedures No procedures recorded for [...]
--- OUTSIDE RECORDS SUMMARY | 2017-09-15 19:22 | External Medical Summary ---
:1950 Author Organization [facility]. Summary purpose CCDA Sent to [facility] Chief Complaint and Reason for Visit No [...] diagnostic tests and/or laboratory data RESULTS Urinalysis :50:00 Result Normal Range Units Site UNK Color Yellow Urine Appearance Clear Specific [place] 1.010 1.005-1.030 pH 6.0 5.0-9.0 Protein AB 1+ Negative Glucose Negative Negative Ketones Negative Negative Bilirubin Negative Negative Blood Negative Negative Nitrite Negative Negative Urobilinogen H 1.0 0.20 mg/dl Leukocyte AB Trace Negative SENT FOR C&S Reference Lab Group [id number]:50:00 Result Normal Range Units Culture Urine See Comment .Site: Received : 05/24/15 14:20 .Order#: [id number] Urine Culture FINAL 05/26/15 08:50 .No growth MOREL FOR RESULTS: * - NEW RESULT - RESULT WAS MODIFIED AFTER FINAL STATUS SET Urine Culture performed at [facility] Reference Lab, [facility] [place] [address] Reading Interventionist Mitzi Perkins DO Urinalysis with Microscopic :50:00 Result Normal Range Units Site UNK Color Yellow Urine Appearance Clear Specific [place] 1.010 1.005-1.030 pH 6.0 5.0-9.0 Protein AB 1+ Negative Glucose Negative Negative Ketones Negative Negative Bilirubin Negative Negative Blood Negative Negative Nitrite Negative Negative Urobilinogen H 1.0 0.20 mg/dl Leukocyte AB Trace Negative SENT FOR C&S History of procedures No procedures recorded for [...]
--- OUTSIDE RECORDS SUMMARY | 2017-09-15 19:22 | External Medical Summary ---
:1950 Author Organization [facility]. Summary purpose CCDA Sent to [facility] Chief Complaint and Reason for Visit Admit Diagnosis 1 BENIGN HYPERTENSION Problem list No authorized problems tracked for [...] tests and/or laboratory data RESULTS Chemistry Group [id number]:02:00 Result Normal Range Units Sodium L 131 134-145 mmol/L Potassium 5.0 3.6-5.0 mmol/L Chloride L 94 98-107 mmol/L CO2 26 22-30 mmol/L Glucose H 124 75-110 mg/dl BUN H 30 9-20 mg/dl Creatinine 1.7 0.8-1.7 mg/dl Calcium 8.5 8.4-10.2 mg/dl Special Chemistry Group [id number]:00 Result Normal Range Units Hemoglobin A1C H 6.6 4.2-6.5 % History of procedures Procedure Code Code Type Description Date Performed Performing Physician 58095 CPT-4 METABOLIC PANEL TOTAL 11-13-2014 [place] [address] CPT-4 GLYCOSYLATED HEMOGLOBIN 11-13-2014 MIGEL CARABALLO TEST Functional status No functional [...]
--- OUTSIDE RECORDS SUMMARY | 2017-09-15 19:22 | External Medical Summary ---
:1950 Author Organization [facility]. Summary purpose CCDA Sent to [facility] Chief Complaint and Reason for Visit Admit Diagnosis 1 HYPOTHYROIDISM NOS Problem list No authorized problems tracked for [...] and/or laboratory data RESULTS Special Chemistry Group [id number]:00 Result Normal Range Units Free T4 0.88 0.75-1.54 ng/dl TSH 5.44 0.50-6.00 uIU/mL History of procedures Procedure Code Code Type Description Date Performed Performing Physician 33100 CPT-4 ASSAY OF FREE 01-03-2015 CARLITOS ULLOM [place] THYROXINE 49249 CPT-4 ASSAY THYROID STIM 01-03-2015 CARLITOS ULLOM [place] HORMONE Functional status No functional or cognitive status [...]
--- OUTSIDE RECORDS SUMMARY | 2017-09-15 19:22 | External Medical Summary ---
:1950 Author Organization [facility]. Summary purpose CCDA Sent to [facility] [...]
--- OUTSIDE RECORDS SUMMARY | 2017-09-15 19:22 | External Medical Summary ---
:1950 Author Organization [facility]. Summary purpose CCDA Sent to [facility] Chief Complaint and Reason for [...]
--- OUTSIDE RECORDS SUMMARY | 2017-09-15 19:22 | External Medical Summary ---
:1950 Author Organization [facility]. Summary purpose CCDA Sent to [facility] Chief Complaint and Reason for Visit [...]
--- OUTSIDE RECORDS SUMMARY | 2017-09-15 19:22 | External Medical Summary ---
:1950 Author Organization [facility]. Summary purpose CCDA Sent to [facility] Chief Complaint and Reason for Visit Admit Diagnosis 1 FEVER,COUGH Problem list No authorized problems tracked for [...]
--- OUTSIDE RECORDS SUMMARY | 2017-09-15 19:22 | External Medical Summary ---
:1950 Author Organization [facility]. Summary purpose [facility] [...] tests and/or laboratory data RESULTS Chemistry Group :13:00 Result Normal Range Units Sodium 137 134-145 mmol/L Potassium H 5.2 3.6-5.0 mmol/L Chloride 102 98-107 mmol/L CO2 26 22-30 mmol/L Glucose 105 75-110 mg/dl BUN H 22 9-20 mg/dl Creatinine H 1.92 0.8-1.7 mg/dl eGFR 26 ml/min. Calcium 8.9 8.4-10.2 mg/dl Special Chemistry Group :13:00 Result Normal Range Units Hemoglobin A1C 6.4 4.2-6.5 % History of procedures No procedures [...]
--- OUTSIDE RECORDS SUMMARY | 2017-09-15 19:22 | External Medical Summary ---
:1950 Author Organization [facility]. Summary purpose CCDA Sent to [facility] Chief Complaint and Reason for Visit [...] diagnostic tests and/or laboratory data RESULTS CBC [id number]:35:00 Result Normal Range Units WBC L 4.13 4.8-10.8 x103/mm3 Neutrophil % 58.8 50-70 % Lymph % 25.7 20-50 % [place] % H 9.2 1.0-9.0 % Eosinophil % H 5.6 0-4 % Basophil % 0.7 0-2 % Neutrophil # L 2.43 3.0-7.0 x103/mm3 Lymph # 1.06 1.0-4.0 x103/mm3 [place] # 0.38 0.0-0.8 x103/mm3 Eosinophil # 0.23 0-0.5 x103/mm3 Basophil # 0.03 0-0.2 x103/mm3 RBC L 4.02 4.20-5.40 x103/mm3 HGB 12.7 12.0-16.0 g/dl HCT 37.2 37.0-47.0 % MCV 92.5 81-99 FL MCH H 31.6 27.0-31.0 pg MCHC 34.1 32.0-36.0 g/dl RDW L 11.6 12-15 % Platelet 211 150-400 x103/mm3 MPV 9.8 6.0-10.0 FL Urinalysis :45:00 Result Normal Range Units Site UNK Color Yellow Urine Appearance Clear Specific [place] 1.010 1.005-1.030 pH 6.0 5.0-9.0 Protein Negative Negative Glucose Negative Negative Ketones Negative Negative Bilirubin Negative Negative Blood Negative Negative Nitrite Negative Negative Urobilinogen 0.2 0.20 mg/dl Leukocyte AB 3+ Negative Chemistry Group :35:00 Result Normal Range Units Sodium 136 134-145 mmol/L Potassium 5.0 3.6-5.0 mmol/L Chloride 100 98-107 mmol/L CO2 27 22-30 mmol/L Glucose H 138 75-110 mg/dl BUN 18 9-20 mg/dl Creatinine H 1.82 0.8-1.7 mg/dl eGFR 28 ml/min. Total Protein L 5.8 6.3-8.2 g/dl Albumin L 3.1 3.5-5.0 g/dl Calcium 8.7 8.4-10.2 mg/dl Alk Phos 84 38-126 U/L AST 22 14-36 U/L ALT 23 11-66 U/L T Bili .5 0.2-1.3 mg/dl D Bili 0.0 0.0-0.3 mg/dl I Bili 0.0 0.0-1.1 mg/dl Special Chemistry Group :35:00 Result Normal Range Units Hemoglobin A1C H 8.4 4.2-6.5 % Urinalysis with Microscopic :45:00 Result Normal Range Units Site UNK Color Yellow Urine Appearance Clear Specific [place] 1.010 1.005-1.030 pH 6.0 5.0-9.0 Protein Negative Negative Glucose Negative Negative Ketones Negative Negative Bilirubin Negative Negative Blood Negative Negative Nitrite Negative Negative Urobilinogen 0.2 0.20 mg/dl Leukocyte AB 3+ Negative History of procedures No procedures recorded [...]
--- OUTSIDE RECORDS SUMMARY | 2017-09-15 19:22 | External Medical Summary ---
:1950 Author Organization [facility]. Summary purpose CCDA Sent to [facility] Chief Complaint and [...] diagnostic tests and/or laboratory data RESULTS CBC [id number]:33:00 Result Normal Range Units WBC 5.74 4.8-10.8 x103/mm3 Neutrophil % 63.5 50-70 % Lymph % 20.0 20-50 % [facility] % H 10.1 1.0-9.0 % Eosinophil % H 5.7 0-4 % Basophil % 0.7 0-2 % Neutrophil # 3.64 3.0-7.0 x103/mm3 Lymph # 1.15 1.0-4.0 x103/mm3 [facility] # 0.58 0.0-0.8 x103/mm3 Eosinophil # 0.33 0-0.5 x103/mm3 Basophil # 0.04 0-0.2 x103/mm3 RBC L 3.91 4.20-5.40 x103/mm3 HGB 12.4 12.0-16.0 g/dl HCT L 36.9 37.0-47.0 % MCV 94.4 81-99 FL MCH H 31.7 27.0-31.0 pg MCHC 33.6 32.0-36.0 g/dl RDW L 11.5 12-15 % Platelet 214 150-400 x103/mm3 MPV 9.5 6.0-10.0 FL Chemistry Group :33:00 Result Normal Range Units Sodium 137 134-145 mmol/L Result Amended on 2016-06-19 at 07:37:28. Previous status was OR. Potassium 4.7 3.6-5.0 mmol/L Result Amended on 2016-06-19 at 07:37:28. Previous status was OR. Chloride 102 98-107 mmol/L Result Amended on 2016-06-19 at 07:37:28. Previous status was OR. CO2 27 22-30 mmol/L Result Amended on 2016-06-19 at 07:37:28. Previous status was OR. Glucose H 151 75-110 mg/dl Result Amended on 2016-06-19 at 07:37:28. Previous status was OR. BUN H 27 9-20 mg/dl Result Amended on 2016-06-19 at 07:37:28. Previous status was OR. Creatinine H 2.13 0.8-1.7 mg/dl Result Amended on 2016-06-19 at 07:37:28. Previous status was OR. eGFR 23 ml/min. Result Amended on 2016-06-19 at 07:37:28. Previous status was OR. Albumin L 3.4 3.5-5.0 g/dl Result Amended on 2016-06-19 at 07:37:28. Previous status was OR. Calcium 8.4 8.4-10.2 mg/dl Result Amended on 2016-06-19 at 07:37:28. Previous status was OR. Bun/Creat 12.9 Ratio Result Amended on 2016-06-19 at 07:37:28. Previous status was OR. Reference Lab Group :15:00 Result Normal Range Units Protein Urine H 22 1-14 mg/dL Creatinine Urine 108 mg/dL Protein/Creat. Ratio, U 0.2 Less than or equal to 0.1=Trace 0.2 - 1.0=Low grade proteinuria 1.1 - 3.5=Moderate proteinuria >3.5=Consistent with nephrotic syndrome. Protein/Creatinine Ratio, Urine performed at [facility] Reference Lab, [facility] [address], [place] [address] Nurse Reviewer Mitzi Perkins DO [id number]:33:00 Result Normal Range Units Phosphorus 4.5 2.3-4.7 mg/dL Phosphorus performed at [facility] Reference Lab, [facility] [place] [address] Nurse Reviewer Mitzi Perkins DO History of procedures Procedure Code Code Type Description Date Performed Performing Physician 74181 CPT-4 COMPLETE CBC, 06-18-2016 DENISHA HERNANDEZ AUTOMATED 86815 CPT-4 RENAL FUNCTION PANEL 06-18-2016 DENISHA HERNANDEZ Functional status No functional or [...]
--- OUTSIDE RECORDS SUMMARY | 2017-09-15 19:23 | External Medical Summary ---
:1950 Author Organization [facility]. Summary purpose CCDA Sent to [facility] Chief Complaint and Reason for Visit [...] diagnostic tests and/or laboratory data RESULTS CBC [id number]:20:00 Result Normal Range Units WBC L 4.07 4.8-10.8 x103/mm3 Neutrophil % 53.4 50-70 % Lymph % 28.7 20-50 % [place] % H 12.0 1.0-9.0 % Eosinophil % H 5.2 0-4 % Basophil % 0.7 0-2 % Neutrophil # L 2.17 3.0-7.0 x103/mm3 Lymph # 1.17 1.0-4.0 x103/mm3 [place] # 0.49 0.0-0.8 x103/mm3 Eosinophil # 0.21 0-0.5 x103/mm3 Basophil # 0.03 0-0.2 x103/mm3 RBC L 3.71 4.20-5.40 x103/mm3 HGB L 11.8 12.0-16.0 g/dl HCT L 34.7 37.0-47.0 % MCV 93.5 81-99 FL MCH H 31.8 27.0-31.0 pg MCHC 34.0 32.0-36.0 g/dl RDW L 11.5 12-15 % Platelet 183 150-400 x103/mm3 MPV 9.1 6.0-10.0 FL Urinalysis [id number]:30:00 Result Normal Range Units Site CC Color Yellow Urine Appearance SLCLOUDY Specific [place] 1.015 1.005-1.030 pH 6.5 5.0-9.0 Protein Negative Negative Glucose Negative Negative Ketones Negative Negative Bilirubin Negative Negative Blood Negative Negative Nitrite Negative Negative Urobilinogen 0.2 0.20 mg/dl Leukocyte AB 1+ Negative Squamous Epi's N0-2 Urine Bacteria 1+ Urine Comments SPECIMEN IS BEING SENT TO REF LAB FOR CULTURE. [facility] Urine WBC N21-30 Chemistry Group [id number]:20:00 Result Normal Range Units Sodium 137 134-145 mmol/L Result Amended on 2015-12-31 at 12:33:46. Previous status was OR. Potassium 5.0 3.6-5.0 mmol/L Result Amended on 2015-12-31 at 12:33:46. Previous status was OR. Chloride 102 98-107 mmol/L Result Amended on 2015-12-31 at 12:33:46. Previous status was OR. CO2 26 22-30 mmol/L Result Amended on 2015-12-31 at 12:33:46. Previous status was OR. Glucose 96 75-110 mg/dl Result Amended on 2015-12-31 at 12:33:46. Previous status was OR. BUN H 21 9-20 mg/dl Result Amended on 2015-12-31 at 12:33:46. Previous status was OR. Creatinine H 1.95 0.8-1.7 mg/dl Result Amended on 2015-12-31 at 12:33:46. Previous status was OR. eGFR 26 ml/min. Result Amended on 2015-12-31 at 12:33:46. Previous status was OR. Total Protein L 5.4 6.3-8.2 g/dl Albumin L 2.9 3.5-5.0 g/dl Result Amended on 2015-12-31 at 12:33:46. Previous status was OR. Calcium 8.5 8.4-10.2 mg/dl Result Amended on 2015-12-31 at 12:33:46. Previous status was OR. Alk Phos 77 38-126 U/L AST 20 14-36 U/L ALT 21 11-66 U/L T Bili .4 0.2-1.3 mg/dl D Bili 0.0 0.0-0.3 mg/dl I Bili 0.0 0.0-1.1 mg/dl Uric Acid 6.7 3.5-8.5 mg/dl Bun/Creat 11.0 Ratio Result Amended on 2015-12-31 at 12:33:46. Previous status was OR. Special Chemistry Group :20:00 Result Normal Range Units TSH 3.86 0.50-6.00 uIU/mL Reference Lab Group :30:00 Result Normal Range Units Culture Urine See Comment .Site: Received : 12/31/15 11:39 .Order#: [id number] Urine Culture FINAL 01/02/16 10:13 .No growth MOREL FOR RESULTS: * - NEW RESULT - RESULT WAS MODIFIED AFTER FINAL STATUS SET Urine Culture performed at [facility] Reference Lab, [address] [place] [address] Financial Officer Mitzi Perkins, DO Protein Urine 12 1-14 mg/dL Creatinine Urine 54 mg/dL Protein/Creat. Ratio, U 0.2 Less than or equal to 0.1=Trace 0.2 - 1.0=Low grade proteinuria 1.1 - 3.5=Moderate proteinuria >3.5=Consistent with nephrotic syndrome. Protein/Creatinine Ratio, Urine performed at [facility] Reference Lab, [address] [place] [address] Financial Officer Mitzi Perkins DO :20:00 Result Normal Range Units Phosphorus H 5.1 2.3-4.7 mg/dL Phosphorus performed at [facility] Reference Lab, [address] [place] [address] Financial Officer Mitzi Perkins, DO Vitamin D-25 Hydroxy L 25 30-74 ng/mL The desirable level of 25-Hydroxy Vitamin D Total(D2 + D3) is 30-74 ng/mL. A level consistently >200 is potentially toxic. Vitamin D, 25-Hydroxy performed at [facility] Reference Lab, [address] [place] [address] Financial Officer Mitzi Perkins, DO Vitamin D2 25-Hydroxy < 7 ng/mL Vitamin D3 25-Hydroxy 25 ng/mL Urinalysis with Microscopic [id number]:30:00 Result Normal Range Units Site CC Color Yellow Urine Appearance SLCLOUDY Specific [place] 1.015 1.005-1.030 pH 6.5 5.0-9.0 Protein Negative Negative Glucose Negative Negative Ketones Negative Negative Bilirubin Negative Negative Blood Negative Negative Nitrite Negative Negative Urobilinogen 0.2 0.20 mg/dl Leukocyte AB 1+ Negative Squamous Epi's N0-2 Urine Bacteria 1+ Urine Comments SPECIMEN IS BEING SENT TO REF LAB FOR CULTURE. [facility] Urine WBC N21-30 History of procedures No procedures recorded for [...]
--- OUTSIDE RECORDS SUMMARY | 2017-09-15 19:23 | External Medical Summary ---
:[address] [facility]. Summary purpose CCDA Sent to [facility] Chief Complaint and Reason for [...] tests and/or laboratory data RESULTS Chemistry Group [id number]:40:00 Result Normal Range Units Sodium 138 134-145 mmol/L Potassium H 5.5 3.6-5.0 mmol/L Chloride 104 98-107 mmol/L CO2 22 22-30 mmol/L Glucose H 121 75-110 mg/dl BUN H 22 9-20 mg/dl Creatinine 1.66 0.8-1.7 mg/dl eGFR 31 ml/min. Calcium 8.7 8.4-10.2 mg/dl History of procedures No procedures [...]
--- OUTSIDE RECORDS SUMMARY | 2017-09-15 19:23 | External Medical Summary ---
:1950 Author Organization [facility]. Summary purpose CCDA Sent to [facility] Chief Complaint and Reason for Visit No [...] tests and/or laboratory data RESULTS Chemistry Group [id number]:03:00 Result Normal Range Units Sodium 140 134-145 mmol/L Potassium H 5.1 3.6-5.0 mmol/L Chloride 103 98-107 mmol/L CO2 28 22-30 mmol/L Glucose 101 75-110 mg/dl BUN H 24 9-20 mg/dl Creatinine H 1.94 0.8-1.7 mg/dl Calcium 8.4 8.4-10.2 mg/dl History of procedures Procedure Code Code Type Description Date Performed Performing Physician 91939 CPT-4 METABOLIC PANEL TOTAL 08-20-2015 CARLITOS WALLACE Functional status No functional or [...]
--- OUTSIDE RECORDS SUMMARY | 2017-09-15 19:23 | External Medical Summary ---
:1950 Author Organization [facility]. Summary purpose CCDA Sent to [facility] Chief Complaint and Reason for Visit [...] tests and/or laboratory data RESULTS Chemistry Group [id number]:25:00 Result Normal Range Units Sodium 137 134-145 mmol/L Potassium 4.9 3.6-5.0 mmol/L Chloride 105 98-107 mmol/L CO2 L* 21 22-30 mmol/L Glucose H 118 75-110 mg/dl BUN H 22 9-20 mg/dl Creatinine 1.66 0.8-1.7 mg/dl eGFR 31 ml/min. Calcium 8.8 8.4-10.2 mg/dl Special Chemistry Group [id number]:25:00 Result Normal Range Units Free T4 0.88 0.75-1.54 ng/dl TSH 2.32 0.50-6.00 uIU/mL Hemoglobin A1C H 7.6 4.2-6.5 % Reference Lab Group [id number]:25:00 Result Normal Range Units Free T3 L 1.6 1.7-3.7 pg/mL T3 Free performed at [facility] Reference Lab, [address] [place] [id number] Budget Analyst Mitzi Perkins DO History of procedures Procedure Code Code Type Description Date Performed Performing Physician 35814 CPT-4 GLYCOSYLATED HEMOGLOBIN 10-27-2016 [facility] TEST 18925 CPT-4 METABOLIC PANEL TOTAL 10-27-2016 [place] [address] CPT-4 ASSAY THYROID STIM 10-27-2016 [facility] HORMONE 72756 CPT-4 ASSAY OF FREE 10-27-2016 [facility] THYROXINE 25171 CPT-4 FREE ASSAY (FT-3) 10-27-2016 [facility] Functional status No functional or cognitive status [...]
--- OUTSIDE RECORDS SUMMARY | 2017-09-15 19:23 | External Medical Summary ---
:1950 Author Organization [facility]. Summary purpose CCDA Sent to [facility] Chief Complaint and Reason for Visit [...] are available for this visit. Vital signs Type Value Date Respirations 20 :00 Pulse 63 :00 O2 Saturation 95% :00 Systolic Blood Press 145mm/HG [id number]:00 Diastolic Blood Pres 84mm/HG :00 Temperature (Fahr) 97.5Degrees 48-71-154568:47 Social history No Social History or smoking status observations were recorded for this visit. ( Unknown if ever smoked.) Treatment Plan No treatment plan text is available for this visit. Hospital discharge instructions No discharge instruction text is available for this visit.
--- OUTSIDE RECORDS SUMMARY | 2017-09-15 19:23 | External Medical Summary ---
:1950 Author Organization [facility]. Summary purpose CCDA Sent to [facility] Chief Complaint and Reason for Visit [...] diagnostic tests and/or laboratory data RESULTS CBC [id number]:09:00 Result Normal Range Units WBC 5.11 4.8-10.8 x103/mm3 Neutrophil % 62.4 50-70 % Lymph % 22.3 20-50 % [place] % H 10.0 1.0-9.0 % Eosinophil % H 4.3 0-4 % Basophil % 1.0 0-2 % Neutrophil # 3.19 3.0-7.0 x103/mm3 Lymph # 1.14 1.0-4.0 x103/mm3 [place] # 0.51 0.0-0.8 x103/mm3 Eosinophil # 0.22 0-0.5 x103/mm3 Basophil # 0.05 0-0.2 x103/mm3 RBC L 3.99 4.20-5.40 x103/mm3 HGB 12.2 12.0-16.0 g/dl HCT L 36.7 37.0-47.0 % MCV 92.0 81-99 FL MCH 30.6 27.0-31.0 pg MCHC 33.2 32.0-36.0 g/dl RDW L 11.7 12-15 % Platelet 230 150-400 x103/mm3 MPV 9.2 6.0-10.0 FL Chemistry Group :09:00 Result Normal Range Units Sodium 135 134-145 mmol/L Result Amended on 2016-12-25 at 08:04:18. Previous status was MT. Potassium H 5.4 3.6-5.0 mmol/L Result Amended on 2016-12-25 at 08:04:18. Previous status was MT. Chloride 100 98-107 mmol/L Result Amended on 2016-12-25 at 08:04:18. Previous status was MT. CO2 24 22-30 mmol/L Result Amended on 2016-12-25 at 08:04:18. Previous status was MT. Glucose H 146 75-110 mg/dl Result Amended on 2016-12-25 at 08:04:18. Previous status was MT. BUN H 28 9-20 mg/dl Result Amended on 2016-12-25 at 08:04:18. Previous status was MT. Creatinine H 1.79 0.8-1.7 mg/dl Result Amended on 2016-12-25 at 08:04:18. Previous status was MT. eGFR 28 ml/min. Result Amended on 2016-12-25 at 08:04:18. Previous status was MT. Albumin 3.5 3.5-5.0 g/dl Result Amended on 2016-12-25 at 08:04:18. Previous status was MT. Calcium 8.8 8.4-10.2 mg/dl Result Amended on 2016-12-25 at 08:04:18. Previous status was MT. Uric Acid 6.0 3.5-8.5 mg/dl Bun/Creat 15.5 Ratio Result Amended on 2016-12-25 at 08:04:18. Previous status was MT. Reference Lab Group :09:00 Result Normal Range Units Phosphorus H 4.9 2.3-4.7 mg/dL Phosphorus performed at [facility] Reference Lab, [facility] [place] [address] County Nurse Mitzi Perkins DO Vitamin D-25 Hydroxy L 27 30-100 ng/mL Result Amended on 2016-12-27 at 11:26:38. Previous status was MT. Note new methodology, reference range and reporting of Vitamin D total only. A level consistently >200 is potentially toxic. Vitamin D, 25-Hydroxy performed at [facility] Reference Lab, [address] [place] [address] County Nurse Mitzi Perkins DO PTH 35.9 6.6-88.9 pg/mL PTH (Parathyroid Hormone) performed at [facility] Reference Lab, [address] [place] [address] County Nurse Mitzi Perkins DO Protein Urine H 33 1-14 mg/dL Creatinine Urine 131 mg/dL Protein/Creat. Ratio, U 0.3 Less than or equal to 0.1=Trace 0.2 - 1.0=Low grade proteinuria 1.1 - 3.5=Moderate proteinuria >3.5=Consistent with nephrotic syndrome. Protein/Creatinine Ratio, Urine performed at [facility] Reference Lab, [address] [place] [address] County Nurse Mitzi Perkins DO History of procedures No [...]
--- OUTSIDE RECORDS SUMMARY | 2017-09-15 19:23 | External Medical Summary ---
:1950 Author Organization [facility]. Summary purpose CCDA Sent to [facility] Chief Complaint and Reason for Visit Admit Diagnosis 1 DIZZINESS AND GIDDINESS Problem list No authorized problems tracked for [...] Code Type Description Date Performed Performing Physician 72694 CPT-4 CANALITH REPOSITIONING 12-26-2014 DENISHA HERNANDEZ PROC 10518 CPT-4 PT EVALUATION 12-26-2014 DENISHA HERNANDEZ 16611 CPT-4 CANALITH REPOSITIONING 12-30-2014 DENISHA HERNANDEZ PROC Functional status No functional or cognitive status [...]
--- OUTSIDE RECORDS SUMMARY | 2017-09-15 19:23 | External Medical Summary ---
:1950 Author Organization [facility]. Summary purpose CCDA Sent to [facility] Chief Complaint and Reason for Visit Admit Diagnosis 1 B-COMPLEX DEFIC NEC Problem list No authorized problems tracked for [...] diagnostic tests and/or laboratory data RESULTS CBC [id number]:50:00 Result Normal Range Units WBC 5.26 4.8-10.8 x103/mm3 Neutrophil % 63.3 50-70 % Lymph % L 19.2 20-50 % [place] % H 10.6 1.0-9.0 % Eosinophil % H 6.5 0-4 % Basophil % 0.4 0-2 % Neutrophil # 3.33 3.0-7.0 x103/mm3 Lymph # 1.01 1.0-4.0 x103/mm3 [place] # 0.56 0.0-0.8 x103/mm3 Eosinophil # 0.34 0-0.5 x103/mm3 Basophil # 0.02 0-0.2 x103/mm3 RBC L 3.85 4.20-5.40 x103/mm3 HGB 12.0 12.0-16.0 g/dl HCT L 35.4 37.0-47.0 % MCV 91.9 81-99 FL MCH H 31.2 27.0-31.0 pg MCHC 33.9 32.0-36.0 g/dl RDW L 11.8 12-15 % Platelet 188 150-400 x103/mm3 MPV 9.3 6.0-10.0 FL Special Chemistry Group [id number]:50:00 Result Normal Range Units Hemoglobin A1C 6.1 4.2-6.5 % History of procedures Procedure Code Code Type Description Date Performed Performing Physician 33127 CPT-4 COMPLETE CBC AUTOMATED 08-14-2014 CARLITOS HENRYSriram SHANTELROSS 45928 CPT-4 GLYCOSYLATED HEMOGLOBIN 08-14-2014 [facility] TEST Functional status No functional or cognitive [...]
--- OUTSIDE RECORDS SUMMARY | 2017-09-15 19:23 | External Medical Summary ---
:1950 Author Organization [facility]. Summary purpose CCDA Sent to [facility] Chief Complaint and Reason for Visit Admit Diagnosis 1 ABN KIDNEY FUNCT STUDY Problem list No authorized problems tracked for [...] tests and/or laboratory data RESULTS Chemistry Group [id number]:30:00 Creatinine H 2.3 Height 62 Weight 243 Body Surface Area 2.07 Volume, Urine 24 hr 2150 Creat Urine 48.1 Creatinine Clearance L 26.1 History of procedures Procedure Code Code Type Description Date Performed Performing Physician 55313 CPT-4 CREATININE CLEARANCE 02-28-2015 CARLITOS ULLOM [place] TEST Functional status No functional or cognitive status observations are available for this visit. Vital signs Type Value Date Body Surface Area [id number]:30 Social history No Social History or smoking status observations were recorded for this visit. ( Unknown if ever smoked.) Treatment Plan No treatment plan text is available for this visit. Hospital discharge instructions No discharge instruction text is available for this visit.
--- OUTSIDE RECORDS SUMMARY | 2017-09-15 19:23 | External Medical Summary ---
:1950 Author Organization [facility]. Summary purpose CCDA Sent to [facility] Chief Complaint and Reason for [...] tests and/or laboratory data RESULTS Chemistry Group [id number]:55:00 Result Normal Range Units Sodium 136 134-145 mmol/L Potassium H 5.3 3.6-5.0 mmol/L Chloride 103 98-107 mmol/L CO2 24 22-30 mmol/L Glucose 103 75-110 mg/dl BUN H 22 9-20 mg/dl Creatinine H 1.90 0.8-1.7 mg/dl eGFR 26 ml/min. Calcium 8.5 8.4-10.2 mg/dl History of procedures Procedure Code Code Type Description Date Performed Performing Physician 41272 CPT-4 METABOLIC PANEL TOTAL 03-31-2016 DENISHA WALLACE Functional status No functional or [...]
--- OUTSIDE RECORDS SUMMARY | 2017-09-15 19:23 | External Medical Summary ---
:1950 Author Organization [facility]. Summary purpose CCDA Sent to [facility] Chief Complaint and Reason for Visit No [...] tests and/or laboratory data RESULTS Chemistry Group [id number] Result Normal Range Units Sodium 136 134-145 mmol/L Potassium 4.9 3.6-5.0 mmol/L Chloride 99 98-107 mmol/L CO2 26 22-30 mmol/L Glucose 95 75-110 mg/dl BUN H 27 9-20 mg/dl Creatinine H 1.88 0.8-1.7 mg/dl Calcium L 8.3 8.4-10.2 mg/dl History of procedures Procedure Code Code Type Description Date Performed Performing Physician 39390 CPT-4 METABOLIC PANEL TOTAL 07-09-2015 [facility] [place] [address] CPT-4 ROUTINE VENIPUNCTURE 07-09-2015 [facility] Functional status No functional or cognitive status [...]
--- OUTSIDE RECORDS SUMMARY | 2017-09-15 19:23 | External Medical Summary ---
:[address] [facility]. Summary purpose CCDA Sent to [facility] Chief Complaint and Reason for Visit Admit Diagnosis 1 HYPERTENSION NOS Problem list No authorized problems tracked [...] diagnostic tests and/or laboratory data RESULTS CBC [id number]:45:00 WBC 7.49 Neutrophil % H 74.4 Lymph % L 10.3 [place] % H 11.1 Eosinophil % 3.9 Basophil % 0.3 Neutrophil # 5.58 Lymph # L 0.77 [place] # H 0.83 Eosinophil # 0.29 Basophil # 0.02 RBC L 3.66 HGB L 11.6 HCT L 33.5 MCV 91.5 MCH H 31.7 MCHC 34.6 RDW L 11.5 Platelet 212 MPV 9.4 Chemistry Group [id number] Sodium L 129 Potassium H 5.2 Chloride L 93 CO2 24 Glucose 99 BUN H 30 Creatinine H 2.3 Calcium 8.5 Special Chemistry Group [id number]:00 BNP 42.2 History of procedures Procedure Code Code Type Description Date Performed Performing Physician 63253 CPT-4 METABOLIC PANEL TOTAL 02-25-2015 [place] [address] CPT-4 COMPLETE CBC 02-25-2015 CARLITOS CARABALLO AUTOMATED 41777 CPT-4 ASSAY OF NATRIURETIC 02-25-2015 CARLITOSCHRISTI CARABALLO PEPTIDE Functional status No functional or cognitive status [...]
--- OUTSIDE RECORDS SUMMARY | 2017-09-15 19:23 | External Medical Summary ---
:1950 Author Organization [facility]. Summary purpose CCDA Sent to [facility] Chief Complaint and Reason for [...] diagnostic tests and/or laboratory data RESULTS CBC [id number]:10:00 Result Normal Range Units WBC L 4.56 4.8-10.8 x103/mm3 Neutrophil % 56.9 50-70 % Lymph % 23.5 20-50 % [place] % H 11.0 1.0-9.0 % Eosinophil % H 7.9 0-4 % Basophil % 0.7 0-2 % Neutrophil # L 2.60 3.0-7.0 x103/mm3 Lymph # 1.07 1.0-4.0 x103/mm3 [place] # 0.50 0.0-0.8 x103/mm3 Eosinophil # 0.36 0-0.5 x103/mm3 Basophil # 0.03 0-0.2 x103/mm3 RBC 4.24 4.20-5.40 x103/mm3 HGB 13.3 12.0-16.0 g/dl HCT 40.1 37.0-47.0 % MCV 94.6 81-99 FL MCH H 31.4 27.0-31.0 pg MCHC 33.2 32.0-36.0 g/dl RDW 12.1 12-15 % Platelet 243 150-400 x103/mm3 MPV 9.2 6.0-10.0 FL Chemistry Group :10:00 Result Normal Range Units Sodium 138 134-145 mmol/L Result Amended on 2015-06-04 at 14:50:25. Previous status was FR. Potassium 5.0 3.6-5.0 mmol/L Result Amended on 2015-06-04 at 14:50:25. Previous status was FR. Chloride 99 98-107 mmol/L Result Amended on 2015-06-04 at 14:50:25. Previous status was FR. CO2 27 22-30 mmol/L Result Amended on 2015-06-04 at 14:50:25. Previous status was FR. Glucose 105 75-110 mg/dl Result Amended on 2015-06-04 at 14:50:24. Previous status was UT. BUN H 26 9-20 mg/dl Result Amended on 2015-06-04 at 14:50:25. Previous status was FR. Creatinine H 1.8 0.8-1.7 mg/dl Result Amended on 2015-06-04 at 14:50:25. Previous status was FR. Albumin L 3.3 3.5-5.0 g/dl Result Amended on 2015-06-04 at 14:50:25. Previous status was FR. Calcium 8.8 8.4-10.2 mg/dl Result Amended on 2015-06-04 at 14:50:25. Previous status was FR. Uric Acid 7.0 3.5-8.5 mg/dl Bun/Creat 13.9 Ratio Result Amended on 2015-06-04 at 14:50:25. Previous status was FR. Special Chemistry Group :10:00 Result Normal Range Units BNP 30 0-100 pg/ml Reference Lab Group :10:00 Result Normal Range Units Phosphorus 4.7 2.3-4.7 mg/dL Phosphorus performed at [facility] Reference Lab, [facility] [place] [address] [employer] Mitzi Perkins, DO Vitamin D-25 Hydroxy 32 30-74 ng/mL The desirable level of 25-Hydroxy Vitamin D Total(D2 + D3) is 30-74 ng/mL. A level consistently >200 is potentially toxic. Vitamin D, 25-Hydroxy performed at [facility] Reference Lab, [address] [place] [id number] [employer]er Mitzi Perkins DO Vitamin D2 25-Hydroxy < 7 ng/mL Vitamin D3 25-Hydroxy 32 ng/mL PTH 40.8 6.6-88.9 pg/mL PTH (Parathyroid Hormone) performed at [facility] Reference Lab, [address] [place] [id number] [employer] Mitzi Perkins DO History of procedures Procedure Code Code Type Description Date Performed Performing Physician 19472 CPT-4 RENAL FUNCTION PANEL 06-04-2015 [facility] 33160 CPT-4 COMPLETE CBC, AUTOMATED 06-04-2015 [facility] 61383 CPT-4 NATRIURETIC PEPTIDE 06-04-2015 [facility] 30680 CPT-4 ASSAY OF PARATHORMONE 06-04-2015 [facility] 84737 CPT-4 ASSAY OF BLOOD/URIC ACID 06-04-2015 [facility] 68490 CPT-4 ASSAY OF DIHYDROXYVITAMIN 06-04-2015 [facility] Functional status No functional or cognitive [...]
--- OUTSIDE RECORDS SUMMARY | 2017-09-15 19:23 | External Medical Summary ---
:1950 Author Organization [facility]. Summary purpose CCDA Sent to [facility] Chief Complaint and Reason for [...] Code Type Description Date Performed Performing Physician 71541 CPT-4 KHUSHI, DNA, DIR 01-18-2017 DENISHA HERNANDEZ PROBE 14773 CPT-4 MCMILLAN VAG, DNA, DIR 01-18-2017 DENISHA HERNANDEZ PROBE 14797 CPT-4 TRICHOMONAS VAGIN, DIR 01-18-2017 DENISHA HERNANDEZ PROBE Functional status No functional [...]
--- OUTSIDE RECORDS SUMMARY | 2017-09-15 19:23 | External Medical Summary ---
:1950 Author Organization [facility]. Summary purpose CCDA Sent to [facility] Chief Complaint and Reason for Visit No [...] tests and/or laboratory data RESULTS Chemistry Group [id number] Sodium L 130 Potassium H 5.1 Chloride L 94 CO2 27 Glucose 110 BUN H 21 Creatinine 1.7 Calcium 8.7 History of procedures Procedure Code Code Type Description Date Performed Performing Physician 91527 CPT-4 METABOLIC PANEL TOTAL 03-11-2015 CARLITOS SHAWN WALLACE Functional status No functional or cognitive [...]
--- OUTSIDE RECORDS SUMMARY | 2017-09-15 19:23 | External Medical Summary ---
:1950 Author Organization [facility]. Summary purpose CCDA Sent to [facility] Chief Complaint and Reason for [...] tests and/or laboratory data RESULTS Chemistry Group [id number] Result Normal Range Units Sodium 136 134-145 mmol/L Potassium H 5.1 3.6-5.0 mmol/L Chloride 98 98-107 mmol/L CO2 27 22-30 mmol/L Glucose 86 75-110 mg/dl BUN H 27 9-20 mg/dl Creatinine 1.61 0.8-1.7 mg/dl Calcium L 8.2 8.4-10.2 mg/dl Special Chemistry Group [id number] Result Normal Range Units Hemoglobin A1C 6.4 [...]
--- OUTSIDE RECORDS SUMMARY | 2017-09-15 19:23 | External Medical Summary ---
:1950 Author Organization [facility]. Summary purpose CCDA Sent to [facility] Chief Complaint and Reason for Visit [...] tests and/or laboratory data RESULTS Chemistry Group [id number] Result Normal Range Units Sodium 137 134-145 mmol/L Potassium 4.8 3.6-5.0 mmol/L Chloride 100 98-107 mmol/L CO2 28 22-30 mmol/L Glucose 98 75-110 mg/dl BUN 19 9-20 mg/dl Creatinine 1.67 0.8-1.7 mg/dl Calcium L 8.3 8.4-10.2 mg/dl History of procedures No procedures [...]
--- OUTSIDE RECORDS SUMMARY | 2017-09-15 19:23 | External Medical Summary ---
:1950 Author Organization [facility]. Summary purpose CCDA Sent to [facility] Chief Complaint and Reason for Visit [...]
--- OUTSIDE RECORDS SUMMARY | 2017-09-15 19:23 | External Medical Summary ---
:[address] [facility]. Summary purpose CCDA Sent to [facility] Chief Complaint and Reason for Visit [...] tests and/or laboratory data RESULTS Chemistry Group [id number] Result Normal Range Units Sodium 140 134-145 mmol/L Potassium 4.7 3.6-5.0 mmol/L Chloride 101 98-107 mmol/L CO2 29 22-30 mmol/L Glucose H 119 75-110 mg/dl BUN H 21 9-20 mg/dl Creatinine H 1.8 0.8-1.7 mg/dl Calcium 8.7 8.4-10.2 mg/dl History of procedures Procedure Code Code Type Description Date Performed Performing Physician 62456 CPT-4 METABOLIC PANEL TOTAL [facility]-28-[facility] Functional status No functional or cognitive status [...]
--- OUTSIDE RECORDS SUMMARY | 2017-09-15 19:23 | External Medical Summary ---
:1950 [address] [facility]. Summary purpose CCDA Sent to [facility] Chief Complaint and Reason for Visit [...] diagnostic tests and/or laboratory data RESULTS CBC [id number]:40:00 Result Normal Range Units WBC 5.65 4.8-10.8 x103/mm3 Neutrophil % 68.2 50-70 % Lymph % L 13.8 20-50 % [place] % H 13.1 1.0-9.0 % Eosinophil % H 4.2 0-4 % Basophil % 0.7 0-2 % Neutrophil # 3.85 3.0-7.0 x103/mm3 Lymph # L 0.78 1.0-4.0 x103/mm3 [place] # 0.74 0.0-0.8 x103/mm3 Eosinophil # 0.24 0-0.5 x103/mm3 Basophil # 0.04 0-0.2 x103/mm3 RBC L 3.79 4.20-5.40 x103/mm3 HGB 12.0 12.0-16.0 g/dl HCT L 35.1 37.0-47.0 % MCV 92.6 81-99 FL MCH H 31.7 27.0-31.0 pg MCHC 34.2 32.0-36.0 g/dl RDW L 11.7 12-15 % Platelet 205 150-400 x103/mm3 MPV 9.1 6.0-10.0 FL Chemistry Group [id number] Result Normal Range Units Sodium L 132 134-145 mmol/L Potassium H 5.1 3.6-5.0 mmol/L Chloride L 92 98-107 mmol/L CO2 30 22-30 mmol/L Glucose H 112 75-110 mg/dl BUN H 28 9-20 mg/dl Creatinine H 2.0 0.8-1.7 mg/dl Calcium 9.2 8.4-10.2 mg/dl Special Chemistry Group [id number] Result Normal Range Units TSH H 6.40 0.50-6.00 uIU/mL History of procedures Procedure Code Code Type Description Date Performed Performing Physician 01688 CPT-4 COMPLETE CBC 12-26-2014 MILAGROS FRANKLIN AUTOMATED 59638 CPT-4 METABOLIC PANEL TOTAL 12-26-2014 [place] [address] CPT-4 ASSAY THYROID STIM 12-26-2014 MILAGROS FRANKLIN HORMONE Functional status No functional or cognitive [...]
--- OUTSIDE RECORDS SUMMARY | 2017-09-15 19:23 | External Medical Summary ---
:1950 Author Organization [facility]. Summary purpose CCDA Sent to [facility] Chief Complaint and Reason [...] tests and/or laboratory data RESULTS Chemistry Group [id number] Sodium L 125 Potassium 4.9 Chloride L 91 CO2 26 Glucose 106 BUN H 24 Creatinine H 2.0 Calcium L 8.3 History of procedures Procedure Code Code Type Description Date Performed Performing Physician 96719 CPT-4 METABOLIC PANEL TOTAL 04-16-2015 CARLITOS ELAINESriram FUNESRAFA WALLACE Functional status No functional or cognitive [...]
--- OUTSIDE RECORDS SUMMARY | 2017-09-15 19:24 | External Medical Summary ---
:1950 Author Organization [facility]. Summary purpose [facility]A Sent [facility] [...] Code Type Description Date Performed Performing Physician 80223 CPT-4 HETEROPHILE ANTIBODIES 01-12-2017 DENISHA HERNANDEZ Functional status No functional or [...]
--- OUTSIDE RECORDS SUMMARY | 2017-09-15 19:24 | External Medical Summary ---
:1950 Author Organization [facility]. Summary purpose CCDA Sent to [facility] Chief Complaint and Reason for [...] tests and/or laboratory data RESULTS Chemistry Group [id number] Result Normal Range Units Sodium 137 134-145 mmol/L Potassium 4.8 3.6-5.0 mmol/L Chloride 103 98-107 mmol/L CO2 25 22-30 mmol/L Glucose H 128 75-110 mg/dl BUN 20 9-20 mg/dl Creatinine H 1.76 0.8-1.7 mg/dl eGFR 29 ml/min. Calcium 8.8 8.4-10.2 mg/dl History of procedures Procedure Code Code Type Description Date Performed Performing Physician 26565 CPT-4 METABOLIC PANEL TOTAL 10-04-2016 DENISHA WALLACE Functional status No functional or [...]
--- NOTE | 2017-09-15 19:32 | Emergency Department Report ---
General Adult HPI - General Stated complaint: Generation clearance (paranoia) Time Seen by Provider: 09/15/17 19:16 Source: patient Mode of arrival: ambulatory Limitations: no limitations - History of Present Illness HPI narrative: 67-year-old female presents to the emergency department needing clearance to go to [facility]. Patient has multiple chronic medical issues none of which are acute at this time. She suffers from chronic dizziness and pain. She states these are all at baseline. She is being referred to [facility] due to increasing paranoia. Patient's symptoms have been persistent for the past couple weeks and gradually increasing while at home. She denies homicidal/ suicidal ideation or plan. No other complaints or associated symptoms at this time. She denies of injury or self-harm. She was at her care facility when her symptoms began. Symptoms have been persistent in nature since onset. - Related Data Home Medications Medication Instructions Recorded Confirmed Acetaminophen [Pain Relief] 1,000 mg PO HS 09/15/17 09/15/17 Acetaminophen [Pain Relief] 500 - 1,000 mg PO Q6H PRN 09/15/17 09/15/17 Aspirin [Ecotrin] 81 mg PO DAILY 09/15/17 09/15/17 Bismuth Subsalicylate Oral Liq 30 ml PO QID PRN 09/15/17 09/15/17 [Pepto-Bismol] CALCIUM CARBONATE Chewable [Tums] 250 mg PO TID PRN 09/15/17 09/15/17 Cholecalciferol (Vitamin D3) 1,000 unit PO DAILY 09/15/17 09/15/17 [Vitamin D3] Cyanocobalamin (Vitamin B-12) 1,000 mcg PO DAILY 09/15/17 09/15/17 [Vitamin B-12] Docusate Sodium [Colace] 100 mg PO HS 09/15/17 09/15/17 Escitalopram [Lexapro] 20 mg PO DAILY 09/15/17 09/15/17 Esomeprazole [NEXIUM 40 mg Capsule] 40 mg PO DAILY 09/15/17 09/15/17 Fluticasone Nasal [place] [Flonase] 2 spray LEWIS DAILY PRN 09/15/17 09/15/17 Gabapentin [Gabapentin] 300 mg PO HS 09/15/17 09/15/17 Guaifenesin/Dm Oral Liq 10 ml PO Q4H PRN 09/15/17 09/15/17 [Robitussin Dm] HydrOXYzine [Atarax] 25 mg PO TID PRN 09/15/17 09/15/17 Hydralazine [Apresoline] 10 mg PO BID 09/15/17 09/15/17 Hydrocodone/APAP 5/325 [[place] 1 tab PO TID PRN 09/15/17 09/15/17 5/325] LORazepam [Ativan] 0.5 mg PO BID PRN 09/15/17 09/15/17 LORazepam [Ativan] 0.5 mg PO DAILY 09/15/17 09/15/17 Levothyroxine Tab [Synthroid] 25 mcg PO DAILY 09/15/17 09/15/17 Levothyroxine Tab [Synthroid] 200 mcg PO DAILY 09/15/17 09/15/17 Losartan [Cozaar] 50 mg PO DAILY 09/15/17 09/15/17 Lysine 1,000 mg PO BID 09/15/17 09/15/17 Mag Hydrox/Aluminum Hyd/Simeth 30 ml PO BID PRN 09/15/17 09/15/17 [Alum-Mag Hydroxide-Simeth Liq] Multivitamin [One Daily] 1 each PO DAILY 09/15/17 09/15/17 Polyethylene Glycol 3350 20 ml PO DAILY 09/15/17 09/15/17 Propranolol HCl [Propranolol HCl 160 mg PO BID 09/15/17 09/15/17 ER] Quetiapine Fumarate 300 mg PO HS 09/15/17 09/15/17 Quetiapine [Seroquel] 100 mg PO DAILY 09/15/17 09/15/17 Simethicone [Mylicon] 80 mg PO QID PRN 09/15/17 09/15/17 Systane Eye Drops 1 drop EACH EYE BID PRN 09/15/17 09/15/17 Systane Eye Drops 1 drop EACH EYE HS 09/15/17 09/15/17 Ziprasidone HCl 80 mg PO BID 09/15/17 09/15/17 Allergies Allergy/AdvReac Type Severity Reaction Status Date / Time aspirin Allergy Intermediate Rash Verified 09/15/17 19:29 metoclopramide [From Reglan] Allergy Intermediate Sleepiness Verified 09/15/17 19:29 amoxicillin [From Augmentin] Allergy Verified 09/15/17 19:33 clavulanic acid Allergy Verified 09/15/17 19:33 [From Augmentin] lisinopril AdvReac Intermediate Cough Verified 09/15/17 19:29 omeprazole AdvReac Intermediate Nausea Verified 09/15/17 19:29 sulfamethoxazole AdvReac Intermediate Verified 09/15/17 19:29 [From Bactrim] trimethoprim [From Bactrim] AdvReac Intermediate Verified 09/15/17 19:29 Review of Systems Constitutional: Denies: fever, chills Eyes: Denies: eye pain, vision change ENT: Denies: ear pain, throat pain Cardiovascular: Denies: chest pain, palpitations Respiratory: Denies: cough, dyspnea Gastrointestinal: Denies: abdominal pain, nausea, vomiting, diarrhea Genitourinary: Denies: urgency, dysuria Musculoskeletal: Denies: back pain, arthralgia Integumentary: Denies: erythema, rash Neurological: Denies: headache, numbness Psychiatric: Reports: other (paranoid). 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 - Social History Smoking status: Never smoker Substance use type: does not use Alcohol intake frequency: does not drink Physical Exam - Limitations Limitations: no limitations - General General appearance: alert, in no apparent distress - Normal Exams: Head:: Normocephalic without trauma Eyes:: Pupils are PERRLA w/ EOMI, No scleral icterus, irritation, or foreign bodies noted ENMT:: No facial trauma, nasal exudates, pharyngeal erythema, or exudates are noted Dental: No fractured, loose, or missing teeth noted Neck:: Full range of motion, without adenopathy, JVD, bruits or thyromegaly Chest/Respirations:: Clear all smith, with good airflow, and symmetry bilaterally Cardiovascular:: Regular rate and rhythm, without murmur or gallop, Pulses 2+ all extremities, capillary refill, <2 seconds all extremities Abdomen:: Bowel sounds positive, soft, non-tender, non-distended, no hepatosplenomegaly, masses or bruits noted Lymphatic:: No lymphadenopathy, or lymphedema noted Musculoskeletal:: No tenderness, or deformity noted, good range of motion, all extremities Integumentary:: No rashes, hives, or bruising noted, hair and nails, without abnormality Neurological:: Patient is alert, and oriented, cranial nerves, motor/sensory/ cerebellar, exams w/o gross deficits, to observation Psychiatric:: Patient exhibits, appropriate attention, emotion and affect Course Vital Signs Temperature 98 F 09/15/17 19:15 Pulse Rate 73 09/15/17 19:15 Respiratory Rate 18 09/15/17 19:15 Blood Pressure 142/78 H 09/15/17 19:15 Pulse Oximetry 95 09/15/17 19:15 Temperature 98 F 09/15/17 19:15 Pulse Rate 69 09/15/17 20:56 Respiratory Rate 18 09/15/17 20:56 Blood Pressure 144/63 H 09/15/17 20:56 Pulse Oximetry 93 09/15/17 20:56 Medical Decision Making - [facility] Narrative Medical decision making narrative: Labs / imaging was discussed in detail with the patient and questions are answered. She is given 500 mL of normal saline intravenously times one. Patient does not have any urinary symptoms. Urine will be sent for culture and if positive antibiotic therapy will be initiated at that time. Patient is in agreement with the current plan of management. She is discussed with Dr. Linsey Griffin and will be admitted to [facility] for further evaluation and treatment. She is medically clear for further evaluation and treatment at a psychiatric facility at this time. No further orders from accepting physician who is in agreement with the current plan of management. TSH is pending at the time of admission and will be followed by accepting physician. - Differential Diagnosis Paranoia, metabolic disorder, dehydration, UTI - Lab Data Result diagrams: 09/15/17 19:42 09/15/17 19:42 Lab Results 09/15/17 09/15/17 09/15/17 Range/Units 19:42 19:42 19:42 WBC 6.0 (4.5-11.0) T/MM3 RBC 3.61 L (4.00-5.20) M/MM3 Hgb 10.8 L (12-16) GM/DL Hct 33.3 L (36-46) % MCV 92.2 (80-100) UM3 MCH 29.9 (26-34) UUG MCHC 32.4 (31-37) GM/DL RDW Std Deviation 39.3 (36.9-50.2) FL Plt Count 232 (130-400) T/MM3 MPV 8.7 L (9.4-12.4) UM3 Immature Gran % (Auto) 0.2 (0.0-0.5) % Neut % (Auto) 63.0 (33-66) % Lymph % (Auto) 22.6 L (23-45) % [place] % (Auto) 9.5 H (0-9.0) % Eos % (Auto) 4.2 H (0-4) % Baso % (Auto) 0.5 (0-2) % Neut # (Auto) 3.8 (1.8-7.7) T/MM3 Lymph # (Auto) 1.4 (1-4.8) T/MM3 [place] # (Auto) 0.6 (0-0.8) T/MM3 Eos # (Auto) 0.3 (0-0.5) T/MM3 Baso # (Auto) 0.0 (0-0.2) T/MM3 Abs Immat Gran (auto) 0.01 (0.00-0.03) T/MM3 Turbidity < 20 (0-20) Sodium 138 (134-144) MEQ/L Potassium 5.3 H (3.6-5) MEQ/L Chloride 105 (98-107) MEQ/L Carbon Dioxide 23 (22-30) MEQ/L Anion Gap 10 (5-15) meq/L BUN 29.0 H (7-17) MG/DL Creatinine 1.9 H (0.7-1.2) mg/dL GFR Calculation 26 BUN/Creatinine Ratio 15 (6-26) RATIO Glucose 146 H (65-110) MG/DL Calculated Osmolality 275 (261-280) MOSM/KG Calcium 8.3 L (8.4-10.2) MG/DL Total Bilirubin 0.20 (0.20-1.30) MG/DL Icterus Index < 2 (0-7) AST 17 (14-36) U/L ALT 13 (1-35) U/L Alkaline Phosphatase 88 (38-126) U/L Troponin I 0.013 (0-0.12) ng/ml Total Protein 6.4 (6.3-8.2) g/dL Albumin 3.7 (3.5-5.0) g/dL Globulin 2.7 (2.4-3.6) G/DL Albumin/Globulin Ratio 1.4 (1.1-2.2) RATIO TSH 1.24 (0.47-4.68) mIU/L Specimen Hemolysis < 15 (0-25) Ur Collection Type Urine Color (YELLOW) Urine Clarity Urine pH (5.0-8.0) Ur Specific [place] (1.015-1.025) Urine Protein (NEGATIVE) Urine Glucose (UA) (NEGATIVE) Urine Ketones (NEGATIVE) Urine Occult Blood (NEGATIVE) Urine Nitrate (NEGATIVE) Urine Bilirubin (NEGATIVE) Urine Urobilinogen (NORMAL) EU/DL Ur Leukocyte Esterase (NEGATIVE) Urine RBC (0-3) /HPF Urine WBC (0-5) /HPF Ur Squamous Epith Cells Ur Transition Epith Cell /HPF Urine Bacteria (NEGATIVE) Ur Culture Indicated? 09/15/17 Range/Units 20:05 WBC (4.5-11.0) T/MM3 RBC (4.00-5.20) M/MM3 Hgb (12-16) GM/DL Hct (36-46) % MCV (80-100) UM3 MCH (26-34) UUG MCHC (31-37) GM/DL RDW Std Deviation (36.9-50.2) FL Plt Count (130-400) T/MM3 MPV (9.4-12.4) UM3 Immature Gran % (Auto) (0.0-0.5) % Neut % (Auto) (33-66) % Lymph % (Auto) (23-45) % [place] % (Auto) (0-9.0) % Eos % (Auto) (0-4) % Baso % (Auto) (0-2) % Neut # (Auto) (1.8-7.7) T/MM3 Lymph # (Auto) (1-4.8) T/MM3 [place] # (Auto) (0-0.8) T/MM3 Eos # (Auto) (0-0.5) T/MM3 Baso # (Auto) (0-0.2) T/MM3 Abs Immat Gran (auto) (0.00-0.03) T/MM3 Turbidity (0-20) Sodium (134-144) MEQ/L Potassium (3.6-5) MEQ/L Chloride (98-107) MEQ/L Carbon Dioxide (22-30) MEQ/L Anion Gap (5-15) meq/L BUN (7-17) MG/DL Creatinine (0.7-1.2) mg/dL GFR Calculation BUN/Creatinine Ratio (6-26) RATIO Glucose (65-110) MG/DL Calculated Osmolality (261-280) MOSM/KG Calcium (8.4-10.2) MG/DL Total Bilirubin (0.20-1.30) MG/DL Icterus Index (0-7) AST (14-36) U/L ALT (1-35) U/L Alkaline Phosphatase (38-126) U/L Troponin I (0-0.12) ng/ml Total Protein (6.3-8.2) g/dL Albumin (3.5-5.0) g/dL Globulin (2.4-3.6) G/DL Albumin/Globulin Ratio (1.1-2.2) RATIO TSH (0.47-4.68) mIU/L Specimen Hemolysis (0-25) Ur Collection Type Urine, void-cc/notcc Urine Color Yellow (YELLOW) Urine Clarity Sl cloudy Urine pH 5.0 (5.0-8.0) Ur Specific [place] 1.020 (1.015-1.025) Urine Protein Negative (NEGATIVE) Urine Glucose (UA) Negative (NEGATIVE) Urine Ketones Negative (NEGATIVE) Urine Occult Blood Negative (NEGATIVE) Urine Nitrate Negative (NEGATIVE) Urine Bilirubin Negative (NEGATIVE) Urine Urobilinogen 0.2 (NORMAL) EU/DL Ur Leukocyte Esterase 2+ A (NEGATIVE) Urine RBC 0-1 (0-3) /HPF Urine WBC 10-20 H (0-5) /HPF Ur Squamous Epith Cells 10-20 Ur Transition Epith Cell 0-1 /HPF Urine Bacteria 1+ H (NEGATIVE) Ur Culture Indicated? Cult not indicated - Radiology Data CXR - No acute processes. - EKG Data EKG #1 EKG results narrative: Sinus rhythm with first-degree AV block. Nonspecific ST changes. 68 per minute. No STEMI. Disposition Clinical Impression: Paranoia Disposition: 64 To [facility] Condition: Improved Time of Disposition: 20:47 (Admit. Dr. Griffin. ) - Seen By: physician
[2017-09-15] MEDS ORDERED: SALINE FLUSH 10ml SYRINGE IVF PRN (20:08)
[2017-09-15] MEDS ORDERED: HYDRALAZINE 10 MG TABLET PO SCH (21:00)
[2017-09-15] MEDS ORDERED: HALOPERIDOL 0.5 MG TABLET PO PRN (22:08)
[2017-09-15] MEDS ORDERED: HALOPERIDOL 5 MG/ML INJECTION IM PRN (22:08)
[2017-09-15] MEDS ORDERED: ACETAMINOPHEN 500 MG TABLET PO PRN (22:15)
[2017-09-15] MEDS ORDERED: NON-FORMULARY MEDICATION 1 EACH EACH (Mag Hydrox/Aluminum Hyd/Simeth [Alum-Mag Hydroxide-S PO PRN (22:15)
[2017-09-15] MEDS ORDERED: SYSTANE EYE DROPS 0.7ml EACH EYE PRN (22:15)
[2017-09-15] MEDS ORDERED: CALCIUM CARBONATE Chewable 500mg TABLET PO PRN (22:15)
[2017-09-15] MEDS ORDERED: FLUTICASONE NASAL SPRAY 50mcg EA NOSTRIL PRN (22:15)
[2017-09-15] MEDS ORDERED: BISMUTH SUBSALICYLATE 262mg/15ml ORAL LIQUID PO PRN (22:15)
[2017-09-15] MEDS ORDERED: SIMETHICONE 80 MG CHEWABLE TABLET PO PRN (22:15)
[2017-09-15] MEDS ORDERED: GUAIFENESIN/DM 5ml ORAL LIQUID PO PRN (22:15)
[2017-09-15] MEDS ORDERED: QUETIAPINE FUMARATE 300 MG PO SCH (22:49)
[2017-09-15] MEDS: ACETAMINOPHEN 500 MG TABLET PO SCH (23:06)
[2017-09-15] MEDS: LORazepam 0.5 MG TABLET PO PRN (23:08)
[2017-09-15] MEDS: DOCUSATE SODIUM 100 MG CAPSULE PO SCH (23:09)
[2017-09-15] MEDS: GABAPENTIN 300 MG CAPSULE PO SCH (23:09)
[2017-09-15] MEDS: SYSTANE EYE DROPS 0.7ml EACH EYE SCH (23:09)
[2017-09-15] MEDS: LYSINE 500 MG TABLET PO SCH (23:10)
[2017-09-16 00:29] VITALS: BMI 41.6
[2017-09-16] MEDS ORDERED: MAG-AL + SIM ORAL LIQUID 30ml PO PRN (06:38)
--- NOTE | 2017-09-16 08:30 | XRay Report ---
Indication: med. clearance XR chest 1V: Comparison: None Technique: Single portable upright AP chest Findings: Patient showed normal heart, mediastinum and central vascularity. Lungs are clear. No new findings are seen. Impression: No active cardiopulmonary findings .
[2017-09-16] MEDS: LEVOTHYROXINE 25 MCG TABLET PO SCH (08:36)
[2017-09-16] MEDS: LEVOTHYROXINE 200 MCG TABLET PO SCH (08:36)
[2017-09-16] MEDS: HYDRALAZINE 10 MG TABLET PO SCH ×2 (08:40→17:31)
[2017-09-16] MEDS: ESCITALOPRAM 20 MG TABLET PO SCH (08:42)
[2017-09-16] MEDS: LYSINE 500 MG TABLET PO SCH ×2 (08:43→20:50)
[2017-09-16] MEDS: ZIPRASIDONE 40 MG CAPSULE PO SCH ×2 (08:47→20:49)
[2017-09-16] MEDS: QUETIAPINE 100 MG TABLET PO SCH ×2 (08:48→20:50)
[2017-09-16] MEDS: PROPRANOLOL LA 80 MG CAPSULE PO SCH ×2 (08:48→20:49)
[2017-09-16] MEDS ORDERED: ZIPRASIDONE HCL 80 MG PO SCH (09:00)
[2017-09-16] MEDS ORDERED: HYDRALAZINE 10 MG TABLET PO SCH (09:00)
[2017-09-16] MEDS ORDERED: PROPRANOLOL HCL 160 MG PO SCH (09:00)
[2017-09-16] MEDS: LORazepam 0.5 MG TABLET PO SCH (09:00)
[2017-09-16] MEDS: MULTI-VITAMIN + MINERAL TABLET PO SCH ×2 (09:00→17:32)
[2017-09-16] MEDS ORDERED: LYSINE 500 MG TABLET PO SCH (09:00)
[2017-09-16] MEDS ORDERED: CYANOCOBALAMIN (B-12) 500mcg TABLET PO SCH (09:00)
[2017-09-16] MEDS ORDERED: LOSARTAN 50 MG TABLET PO SCH (09:00)
[2017-09-16] MEDS ORDERED: NON-FORMULARY MEDICATION 1 EACH EACH (Cyanocobalamin (Vitamin B-12) [Vitamin B-12] 1,000 M PO SCH (09:00)
[2017-09-16] MEDS ORDERED: NON-FORMULARY MEDICATION 1 EACH EACH (Cholecalciferol (Vitamin D3) [Vitamin D3] 1,000 UNIT PO SCH (09:00)
[2017-09-16] MEDS ORDERED: NON-FORMULARY MEDICATION 1 EACH EACH (Multivitamin [One Daily] 1 EACH) PO SCH (09:00)
[2017-09-16] MEDS: PANTOPRAZOLE 40 MG TABLET PO SCH (09:01)
[2017-09-16] MEDS: POLYETHYL GLYCOL 3350 17gm PACKET PO SCH ×2 (09:01→17:38)
[2017-09-16] MEDS: ASPIRIN *EC* 81 MG TABLET PO SCH (09:01)
--- NOTE | 2017-09-16 09:37 | History & Physical Report ---
History of Present Illness Date: 09/16/17 Chief complaint: Increasing paranoia HPI: Patient is a 67 yo female who resides at [facility] who has had increasing paranoia and has become exceedingly needy prompting referral to [facility] as staff was unable to meet her needs at the [place]. She is a patient of Dr. Kimber Brady in [place]. Patient has CKD and follows with Dr. Moralez. She is on a 1.5L fluid restriction with low phosphorus, low potassium diet. She has Type 2 DM and her glimepiride was DC'd at her office visit on 07/20 w/ Dr. Brady. Review of Systems All systems PM: 10-point ROS was reviewed, no additional remarkable complaints except (mild SOA, "I am frustrated b/c they won't give me my comb and they gave me my medicines late so now my breakfast will be cold.") Past Medical History Medical History Updates: Type 2 DM. Hypothyroidism. schizoaffective d/o. CKD - Stage III. GERD. CAD. Chronic back pain. Diverticulosis. HTN. Atrophic vaginitis (? lichen clerosis) Surgical History: cholecystectomy, BSO. heart cath - Dr Caldwell (mild to mod RCA obstructive CAD, EF 60%)-Mar 2016 Family History Updates: Father - age 70's of lung disease. Mother - age 80's of heart disease/HTN. Aunt - DM Family History: As Above - Social History Smoking status: Never smoker Substance use type: does not use Alcohol intake frequency: does not drink Housing: [facility] Current occupational status: disabled Social history: PCP - Dr. Brady Irrigation Service Technician - Dr. Moralez Transcription Coordinator - Dr. Caldwell Psych - Dr. Eliseo Quiles EMBEDDED SYSTEMS ENGINEER - Dr. Beach Medications Home Medications Medication Instructions Recorded Confirmed Type Acetaminophen [Pain Relief] 1,000 mg PO HS 09/15/17 09/15/17 History Acetaminophen [Pain Relief] 500 - 1,000 mg PO Q6H PRN 09/15/17 09/15/17 History Aspirin [Ecotrin] 81 mg PO DAILY 09/15/17 09/15/17 History Bismuth Subsalicylate Oral Liq 30 ml PO QID PRN 09/15/17 09/15/17 History [Pepto-Bismol] CALCIUM CARBONATE Chewable [Tums] 250 mg PO TID PRN 09/15/17 09/15/17 History Cholecalciferol (Vitamin D3) 1,000 unit PO DAILY 09/15/17 09/15/17 History [Vitamin D3] Cyanocobalamin (Vitamin B-12) 1,000 mcg PO DAILY 09/15/17 09/15/17 History [Vitamin B-12] Docusate Sodium [Colace] 100 mg PO HS 09/15/17 09/15/17 History Escitalopram [Lexapro] 20 mg PO DAILY 09/15/17 09/15/17 History Esomeprazole [NEXIUM 40 mg Capsule] 40 mg PO DAILY 09/15/17 09/15/17 History Fluticasone Nasal [place] [Flonase] 2 spray LEWIS DAILY PRN 09/15/17 09/15/17 History Gabapentin [Gabapentin] 300 mg PO HS 09/15/17 09/15/17 History Guaifenesin/Dm Oral Liq 10 ml PO Q4H PRN 09/15/17 09/15/17 History [Robitussin Dm] HydrOXYzine [Atarax] 25 mg PO TID PRN 09/15/17 09/15/17 History Hydralazine [Apresoline] 10 mg PO BID 09/15/17 09/15/17 History Hydrocodone/APAP 5/325 [[place] 1 tab PO TID PRN 09/15/17 09/15/17 History 5/325] LORazepam [Ativan] 0.5 mg PO BID PRN 09/15/17 09/15/17 History LORazepam [Ativan] 0.5 mg PO DAILY 09/15/17 09/15/17 History Levothyroxine Tab [Synthroid] 25 mcg PO DAILY 09/15/17 09/15/17 History Levothyroxine Tab [Synthroid] 200 mcg PO DAILY 09/15/17 09/15/17 History Losartan [Cozaar] 50 mg PO DAILY 09/15/17 09/15/17 History Lysine 1,000 mg PO BID 09/15/17 09/15/17 History Mag Hydrox/Aluminum Hyd/Simeth 30 ml PO BID PRN 09/15/17 09/15/17 History [Alum-Mag Hydroxide-Simeth Liq] Multivitamin [One Daily] 1 each PO DAILY 09/15/17 09/15/17 History Polyethylene Glycol 3350 20 ml PO DAILY 09/15/17 09/15/17 History Propranolol HCl [Propranolol HCl 160 mg PO BID 09/15/17 09/15/17 History ER] Quetiapine Fumarate 300 mg PO HS 09/15/17 09/15/17 History Quetiapine [Seroquel] 100 mg PO DAILY 09/15/17 09/15/17 History Simethicone [Mylicon] 80 mg PO QID PRN 09/15/17 09/15/17 History Systane Eye Drops 1 drop EACH EYE BID PRN 09/15/17 09/15/17 History Systane Eye Drops 1 drop EACH EYE HS 09/15/17 09/15/17 History Ziprasidone HCl 80 mg PO BID 09/15/17 09/15/17 History Allergies Allergy/AdvReac Type Severity Reaction Status Date / Time aspirin Allergy Intermediate Rash Verified 09/15/17 19:29 metoclopramide [From Reglan] Allergy Intermediate Sleepiness Verified 09/15/17 19:29 amoxicillin [From Augmentin] Allergy Verified 09/15/17 19:33 clavulanic acid Allergy Verified 09/15/17 19:33 [From Augmentin] lisinopril AdvReac Intermediate Cough Verified 09/15/17 19:29 omeprazole AdvReac Intermediate Nausea Verified 09/15/17 19:29 sulfamethoxazole AdvReac Intermediate Verified 09/15/17 19:29 [From Bactrim] trimethoprim [From Bactrim] AdvReac Intermediate Verified 09/15/17 19:29 Exam Vital Signs: Temperature 97.6 F 09/16/17 08:00 Pulse Rate 66 09/16/17 08:00 Respiratory Rate 18 09/16/17 08:00 Blood Pressure 176/71 H 09/16/17 08:00 Pulse Oximetry 96 09/16/17 08:00 Height/Weight/BMI: Height 1.6 m Weight 106.6 kg Body Mass Index 41.6 - Constitutional Present: no acute distress, well nourished, well developed, obese - Routine HEENT Exam Head: Present: normocephalic, atraumatic ENT: Present: mucous membranes moist, oropharynx clear - Routine Neck Exam Present: supple. Absent: lymphadenopathy, thyromegaly - Routine Respiratory Exam Present: CTA bilaterally. Absent: wheezes - Routine Cardiovascular Exam Present: RRR, no murmur - Routine Abdominal Exam Present: soft, normoactive bowel sounds, tenderness (diffuse - mild). Absent: distended - Routine Extremities Exam Present: no edema, normal capillary refill - Routine Skin Exam Present: dry, warm - Routine Neurological Exam Present: alert, oriented X3, CN II-XII intact, moving all extremities, normal tone, normal speech - Routine Psychiatric Exam Present: normal affect, cooperative Results - Labs CBC & Chem 7: 09/16/17 11:58 09/16/17 11:58 Labs: Laboratory Tests 09/15/17 09/15/17 19:42 19:42 Vitamin B12 > 1000 H Folate 9.2 TSH 1.24 Laboratory Tests 09/15/17 20:05 Ur Collection Type Urine, void-cc/notcc Urine Color Yellow Urine Clarity Sl cloudy Urine pH 5.0 Ur Specific [place] 1.020 Urine Protein Negative Urine Glucose (UA) Negative Urine Ketones Negative Urine Occult Blood Negative Urine Nitrate Negative Urine Bilirubin Negative Urine Urobilinogen 0.2 Ur Leukocyte Esterase 2+ A Urine RBC 0-1 Urine WBC 10-20 H Ur Squamous Epith Cells 10-20 Ur Transition Epith Cell 0-1 Urine Bacteria 1+ H - Imaging and Cardiology Chest x-ray Additional comments: Date of Exam: 09/15/17 Indication: med. clearance CXR chest 1V: Findings: Patient showed normal heart, mediastinum and central vascularity. Lungs are clear. No new findings are seen. Impression: No active cardiopulmonary findings Assessment and Plan (1) Paranoia Current visit: Yes Status: Acute Assessment and Plan: Outpatient labs from 08/03/17: Hemoglobin 10.5, hematocrit 32.0, platelet 217 Sodium 136, potassium 5.4, Creatinine 1.69, albumin 21, calcium 8.5 Assessment Schizoaffective d/o w/ increasing paranoia Hyperkalemia - POA Hypocalcemia - POA Normocytic anemia - POA Type 2 DM - A1C 7% (04/22) Hypothyroidism CKD - Stage III CAD GERD Chronic back pain Diverticulosis HTN Atrophic vaginitis (? lichen sclerosis) Plan Agree with admissions to [facility] for [facility] evaluation/tx. Continue her 1.5L fluid restriction and low phosphorous, low potassium diet for CKD. Carb controlled for DM. Accuchecks ac and hs - can DC after 1-2 days if sugars are nl. Hold cyanocobalamin given her elevated B12 level. Urine culture was ordered in ER. Patient has no urinary symptoms. Even if patient has growth on culture, this is likely asymptomatic bacteria and would likely not require treatment. Check CBC and BMP now. Consider decreasing or holding Losartan depending on potassium level today. Continue clobetasol to vulvar area BID through 10/14/17. Pt has allergy listed to ASA but she takes a daily baby ASA per NH. Will continue. Hospitalist service will follow patient throughout her stay. Thank you for the consult. Care to return to Dr. Brady on dismissal. Resuscitation Status: Do Not Resuscitate - Physician Narrative Physician: Katty Sullivan MD Narrative: Date: 09/16/17 Time: 2009 I have independently evaluated and examined this patient. I reviewed the chart, the patient's history, and the PRESIDENT & CEO/PA's documented findings as above. We discussed and formulated the assessment and plan as above with additions as below: Mrs. Byrd was seen late afternoon at which time she was resting comfortably in her room. She reported occasional lightheadedness but denied dyspnea, chest pain, dysuria, or nausea. She expressed frustration that she is at been asked many questions today and that she is on a diabetic diet. NAD, alert Conjugate gaze, EOMI, facial structure symmetric, sensation intact across the face bilaterally, tongue midline, shoulder shrug symmetric Respirations nonlabored, anterior breath sounds clear Regular cardiac rhythm Abdomen soft, nontender Motor tone normal, no tremor, power 4/5 bilaterally frame nailer, iliopsoas, and plantar flexion; no drift upper extremities Sensation intact to light touch 4 extremities Laboratory data reviewed-normocytic anemia consistent with chronic kidney disease, hyperkalemia, creatinine 1.8, preserved levels of B-12 and folic acid, TSH 1.24. Minor pyuria present but nitrite negative and epithelial cells present suggesting contaminated urine sample. Chest x-ray reviewed by myself-NAD; EKG also reviewed by myself demonstrating sinus rhythm with rate of 68, diffuse T-wave flattening but no indication of hyperkalemia. Will continue to monitor electrolytes, currently renal function is stage IV. If potassium remains above 5.[address] Moralez to discuss further interventions. Blood pressure has been elevated throughout the day, may require conversion from losartan to amlodipine or alternate agent given progression of renal failure. Thank you for allowing us to participate in this patient's care. Hospital Course Summary Disclaimer: The visit summary below is not to be considered part of the above Progress Note. Hospital Course: 09/16/17 - Hospitalist consult Agree with admissions to [facility] for psychiatric evaluation/tx. Continue her 1.5L fluid restriction and low phosphorous, low potassium diet for CKD. Carb controlled for DM. Accuchecks ac and hs - can DC after 1-2 days if sugars are nl. Hold cyanocobalamin given her elevated B12 level. Urine culture was ordered in ER. Patient has no urinary symptoms. Even if patient has growth on culture, this is likely asymptomatic bacteria and would likely not require treatment. Check CBC and BMP now. Consider decreasing or holding Losartan depending on potassium level today. Continue clobetasol to vulvar area BID through 10/14/17. Pt has allergy listed to ASA but she takes a daily baby ASA per NH. Will continue. Hospitalist service will follow patient throughout her stay. Thank you for the consult. Care to return to Dr. Brady on dismissal. Addendum entered and electronically signed by IVELISSE Lopez 09/16/17 14:29 : K+ 6.0. Add Bumex 1mg x 1 and hold Losartan. Recheck BMP in am. Check Mg and phosphorous on blood in lab.
[2017-09-16] MEDS ORDERED: HYDROCORTISONE 1% CREAM 28.35gm TOP PRN (14:17)
[2017-09-16] MEDS ORDERED: BUMETANIDE 1 MG TABLET PO ONE (14:28)
[2017-09-16] MEDS: AQUAPHOR TOPICAL OINTMENT 52.5 G TUBE TP SCH ×2 (16:00→22:23)
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
[2017-09-16] MEDS: ACETAMINOPHEN 500 MG TABLET PO SCH (20:48)
[2017-09-16] MEDS: GABAPENTIN 300 MG CAPSULE PO SCH (20:49)
[2017-09-16] MEDS: DOCUSATE SODIUM 100 MG CAPSULE PO SCH (20:49)
[2017-09-16] MEDS: SYSTANE EYE DROPS 0.7ml EACH EYE SCH (20:51)
[2017-09-16] MEDS ORDERED: QUETIAPINE FUMARATE 300 MG PO SCH (21:00)
[2017-09-16] MEDS ORDERED: ACETAMINOPHEN 500 MG TABLET PO SCH (21:00)
[2017-09-16] MEDS ORDERED: DOCUSATE SODIUM 100 MG CAPSULE PO SCH (21:00)
[2017-09-16] MEDS ORDERED: SYSTANE EYE DROPS 0.7ml EACH EYE SCH (21:00)
[2017-09-16] MEDS ORDERED: GABAPENTIN 300 MG CAPSULE PO SCH (21:00)
[2017-09-16] MEDS: LORazepam 0.5 MG TABLET PO PRN (21:59)
[2017-09-16] MEDS: CLOBETASOL 0.05% CREAM 15gm TOP SCH (22:22)
[2017-09-17] MEDS: LEVOTHYROXINE 25 MCG TABLET PO SCH (06:09)
[2017-09-17] MEDS: LEVOTHYROXINE 200 MCG TABLET PO SCH (06:09)
[2017-09-17] MEDS: PANTOPRAZOLE 40 MG TABLET PO SCH (06:09)
[2017-09-17] MEDS: ASPIRIN *EC* 81 MG TABLET PO SCH (09:42)
[2017-09-17] MEDS: LYSINE 500 MG TABLET PO SCH ×2 (09:42→20:12)
[2017-09-17] MEDS: QUETIAPINE 100 MG TABLET PO SCH ×2 (09:42→20:12)
[2017-09-17] MEDS: ESCITALOPRAM 20 MG TABLET PO SCH (09:42)
[2017-09-17] MEDS: ZIPRASIDONE 40 MG CAPSULE PO SCH ×2 (09:43→20:12)
[2017-09-17] MEDS: HYDRALAZINE 10 MG TABLET PO SCH ×2 (09:43→17:14)
[2017-09-17] MEDS: LORazepam 0.5 MG TABLET PO SCH (09:43)
[2017-09-17] MEDS: PROPRANOLOL LA 80 MG CAPSULE PO SCH ×2 (09:43→20:12)
[2017-09-17] MEDS: MULTI-VITAMIN + MINERAL TABLET PO SCH (09:43)
[2017-09-17] MEDS: AQUAPHOR TOPICAL OINTMENT 52.5 G TUBE TP SCH ×2 (09:44→15:05)
[2017-09-17] MEDS: CLOBETASOL 0.05% CREAM 15gm TOP SCH (09:44)
[2017-09-17] MEDS: POLYETHYL GLYCOL 3350 17gm PACKET PO SCH (09:46)
--- NOTE | 2017-09-17 11:37 | Neuropsych Progress Note ---
[facility] Subjective Date: 09/17/17 - Sujective/Severity of Illness Medications: Acetaminophen (Tylenol) 500 mg PO Q6H PRN PRN Reason: Pain Acetaminophen (Tylenol) 1,000 mg PO [facility] Last Admin: 09/16/17 20:48 Dose: 1,000 mg Hydrocodone Bitart/Acetaminophen (Davin 5/325) 1 tab PO TID PRN PRN Reason: Pain Al Hydroxide/Mg Hydroxide (Maalox Plus) 30 ml PO BID PRN PRN Reason: Indigestion Aspirin (Ecotrin) 81 mg PO DAILY [facility] Last Admin: 09/17/17 09:42 Dose: 81 mg Bismuth Subsalicylate (Pepto-Bismol) 524 mg PO QID PRN PRN Reason: Indigestion Calcium Carbonate (Tums) 250 mg PO TID PRN PRN Reason: Gastrointestinal upset Cholecalciferol (Vit. D-3) 1,000 unit PO DAILY [facility] Last Admin: 09/17/17 09:43 Dose: 1,000 unit Clobetasol Propionate (Temovate Cream) 1 applic TOP BID [facility] Last Admin: 09/17/17 09:44 Dose: 1 applic Docusate Sodium (Colace) 100 mg PO [facility] Last Admin: 09/16/17 20:49 Dose: 100 mg Emollient Ointment (Aquaphor) 1 applic TP TID [facility] Last Admin: 09/17/17 09:44 Dose: 1 applic Escitalopram Oxalate (Lexapro) 20 mg PO DAILY [facility] Last Admin: 09/17/17 09:42 Dose: 20 mg Fluticasone Propionate (Flonase) 2 spray EA NOSTRIL DAILY PRN PRN Reason: Rhinitis Gabapentin (Neurontin) 300 mg PO [facility] Last Admin: 09/16/17 20:49 Dose: 300 mg Guaifenesin/Dextromethorphan (Robitussin Dm) 10 ml PO Q4H PRN PRN Reason: Cough Haloperidol (Haldol) 0.5 mg PO Q6H PRN PRN Reason: Extreme agitation Haloperidol Lactate (Haldol) 0.5 mg IM Q6H PRN PRN Reason: Extreme agitation Hydralazine HCl (Apresoline) 10 mg PO BIDWM [facility] Last Admin: 09/17/17 09:43 Dose: 10 mg Hydrocortisone (Cortizone-10 Cream) 1 applic TOP TID PRN PRN Reason: Itching Hydroxyzine HCl (Atarax) 25 mg PO TID PRN PRN Reason: Itching Last Admin: 09/16/17 16:01 Dose: 25 mg Levothyroxine Sodium (Synthroid) 25 mcg PO ACB [facility] Last Admin: 09/17/17 06:09 Dose: 25 mcg Levothyroxine Sodium (Synthroid) 200 mcg PO ACB [facility] Last Admin: 09/17/17 06:09 Dose: 200 mcg Lorazepam (Ativan) 0.5 mg PO Q6H PRN PRN Reason: Extreme agitation Last Admin: 09/16/17 21:59 Dose: 0.5 mg Lorazepam (Ativan Inj) 0.5 mg IM Q6H PRN PRN Reason: Extreme agitation Lorazepam (Ativan) 0.5 mg PO DAILY [facility] Last Admin: 09/17/17 09:43 Dose: 0.5 mg Losartan Potassium (Cozaar) 50 mg PO DAILY [facility] Last Admin: 09/16/17 08:42 Dose: 50 mg Lysine Acetate (L-Lysine) 1,000 mg PO BID [facility] Last Admin: 09/17/17 09:42 Dose: 1,000 mg Multivitamins/Minerals (Therapeutic - M) 1 tab PO DAILY [facility] Last Admin: 09/17/17 09:43 Dose: 1 tab Pantoprazole Sodium (Protonix Tab) 40 mg PO ACB [facility] Last Admin: 09/17/17 06:09 Dose: 40 mg Polyethyl Glycol/Propylene Glycol (Systane Eye Drops) 1 drop EACH EYE BID PRN PRN Reason: Dry eyes Polyethyl Glycol/Propylene Glycol (Systane Eye Drops) 1 drop EACH EYE [facility] Last Admin: 09/16/17 20:51 Dose: 1 drop Polyethylene Glycol (Miralax) 17 gm PO DAILY [facility] Last Admin: 09/17/17 09:46 Dose: Not Given Propranolol HCl (Inderal La) 160 mg PO BID [facility] Last Admin: 09/17/17 09:43 Dose: 160 mg Quetiapine Fumarate (Seroquel) 100 mg PO DAILY [facility] Last Admin: 09/17/17 09:42 Dose: 100 mg Quetiapine Fumarate (Seroquel) 300 mg PO HS [facility] Last Admin: 09/16/17 20:50 Dose: 300 mg Simethicone (Mylicon) 80 mg PO QID PRN PRN Reason: Gas Ziprasidone (Geodon) 80 mg PO BID [facility] Last Admin: 09/17/17 09:43 Dose: 80 mg Subjective: Pt seen and chart examined. Nursing reports pt is doing fairly well. Pt slept well and has a good appetite. Pt received Ativan last night at bedtime for some anxiety. On face to face the pt states she is ore depressed. She states she is upset because she was getting Ativan 3x/day [facility] the [facility] and is not getting it here. She states she is anxious although she does not appear anxious. She reports paranoia which she states is helped with the Ativan. She denies any S/I. Start Time: 10:00 Stop Time: 10:15 Mental Status Exam Vitals: Last Vital Signs Temp 96.5 F L 09/17/17 08:00 Pulse 59 L 09/17/17 08:00 Resp 20 09/17/17 08:00 BP 182/73 H 09/17/17 08:00 Pulse Ox 96 09/17/17 08:00 Height: 1.6 m Weight: 106.6 kg - Mental Status Exam Muscle Strength/Tone: Normal Dressing: Casual Grooming: Fair Attitude: Cooperative Motor Activity: Retardation Eye Contact: Poor Speech: Slowed Volume: Soft Rhythm: Appropriate Rhythm Orientation: Oriented X4 Mood: Depressed Rate of Thoughts: Delayed (may be due to effort rather than ability) Thought Organization: Organized, [place] Associations: Intact Abstract Reasoning: Poor abstract reasoning Thought Content: Ruminations, Helplessness, Paranoia Perception/Psychotic: Perception Normal Fund of Knowledge: Other (Below average at baseline) Memory: Other (Unclear what patient's baseline is) Suicidal Ideation: Denies Homicidal Ideation: Denies Insight: Limited Judgement: Limited Impulse Control: Fair - Laboratory Result Diagrams: 09/17/17 06:54 09/17/17 06:54 Laboratory Results - last 24 hr 09/16/17 09/16/17 09/16/17 11:58 11:58 11:58 WBC 4.5 RBC 3.59 L Hgb 10.8 L Hct 33.1 L MCV 92.2 MCH 30.1 MCHC 32.6 RDW Std Deviation 39.3 Plt Count 219 MPV 9.0 L Immature Gran % (Auto) 0.2 Neut % (Auto) 62.9 Lymph % (Auto) 21.9 L Isabela % (Auto) 9.3 H Eos % (Auto) 5.3 H Baso % (Auto) 0.4 Neut # (Auto) 2.8 Lymph # (Auto) 1.0 Isabela # (Auto) 0.4 Eos # (Auto) 0.2 Baso # (Auto) 0.0 Abs Immat Gran (auto) 0.01 Turbidity < 20 Sodium 136 Potassium 6.0 H Chloride 104 Carbon Dioxide 24 Anion Gap 8 BUN 26.0 H Creatinine 1.8 H GFR Calculation 28 BUN/Creatinine Ratio 14 Glucose 174 H Glucometer Calculated Osmolality 271 Calcium 8.5 Phosphorus 4.6 H Magnesium 1.9 Icterus Index < 2 Specimen Hemolysis < 15 09/16/17 09/17/17 09/17/17 17:00 06:54 06:54 WBC 4.9 RBC 3.58 L Hgb 10.8 L Hct 32.8 L MCV 91.6 MCH 30.2 MCHC 32.9 RDW Std Deviation 38.7 Plt Count 208 MPV 9.2 L Immature Gran % (Auto) 0.2 Neut % (Auto) 56.1 Lymph % (Auto) 27.3 Isabela % (Auto) 10.3 H Eos % (Auto) 5.5 H Baso % (Auto) 0.6 Neut # (Auto) 2.7 Lymph # (Auto) 1.3 Isabela # (Auto) 0.5 Eos # (Auto) 0.3 Baso # (Auto) 0.0 Abs Immat Gran (auto) 0.01 Turbidity < 20 Sodium 135 Potassium 5.1 H Chloride 101 Carbon Dioxide 26 Anion Gap 8 BUN 28.0 H Creatinine 1.9 H GFR Calculation 26 BUN/Creatinine Ratio 15 Glucose 142 H Glucometer 208 Calculated Osmolality 268 Calcium 8.9 Phosphorus Magnesium Icterus Index < 2 Specimen Hemolysis < 15 Assessment and Plan (1) Schizophreniform disorder Current visit: Yes Status: Acute Hospital Course Summary Disclaimer: The visit summary below is not to be considered part of the above Progress Note. Hospital Course: 09/16/17 - Hospitalist consult Agree with admissions to [facility] for psychiatric evaluation/tx. Continue her 1.5L fluid restriction and low phosphorous, low potassium diet for CKD. Carb controlled for DM. Accuchecks ac and hs - can DC after 1-2 days if sugars are nl. Hold cyanocobalamin given her elevated B12 level. Urine culture was ordered in ER. Patient has no urinary symptoms. Even if patient has growth on culture, this is likely asymptomatic bacteria and would likely not require treatment. Check CBC and BMP now. Consider decreasing or holding Losartan depending on potassium level today. Continue clobetasol to vulvar area BID through 10/14/17. Pt has allergy listed to ASA but she takes a daily baby ASA per [facility]. Will continue. Hospitalist service will follow patient throughout her stay. Thank you for the consult. Care to return to Dr. Brady on dismissal. 09/17/17 Psych- Pt reports feeling more depressed today. Requesting Ativan. Continue current care. Will assess need for two antipsychotics
[2017-09-17] MEDS: HYDROCODONE/APAP 5mg/325mg TABLET PO PRN (15:20)
--- NOTE | 2017-09-17 18:16 | Progress Note ---
- Date 09/17/17 Subjective: Patient states when she was wiping after using the bathroom she feels like she "did something" to her tissues in the vulvar region. She recently had a bx performed by Dr. Beach and was instructed to use clobetasol cream twice a day to this area through October 14. She states she had pain until she was given a pain pill. At this point she has no pain. She denies any increase in vaginal discharge. Objective Vital signs: Temperature 97.0 F 09/17/17 15:19 Pulse Rate 61 09/17/17 15:19 Respiratory Rate 20 09/17/17 15:19 Blood Pressure 146/85 H 09/17/17 15:19 Pulse Oximetry 96 09/17/17 15:19 Height/Weight/BMI: Height 1.6 m Weight 106.6 kg Body Mass Index 41.6 - Routine Exam Patient deferred: external exam Genitals image: 1 - erythema 2 - healing bx site Comments: Small amount of yellowish discharge was noted externally just below and around the clitoral region. There is no evidence of any bleeding or excoriation. She has atrophic changes with a smoother, more erythematous area centrally. See drawing. The area where it appears the biopsy was performed is healing. She has tenderness with palpation in that area, but really has tenderness over the entire area. Results - Labs CBC & Chem 7: 09/17/17 06:54 09/17/17 06:54 Assessment and Plan (1) Paranoia Current visit: Yes Status: Acute Assessment and Plan: Outpatient labs from 08/03/17: Hemoglobin 10.5, hematocrit 32.0, platelet 217 Sodium 136, potassium 5.4, Creatinine 1.69, albumin 21, calcium 8.5 Assessment Vulvar pain-onset 09/17/17 (accidentally self-inflicted while wiping) Schizoaffective d/o w/ increasing paranoia Hyperkalemia - POA Hypocalcemia - POA Normocytic anemia - POA Type 2 DM - A1C 7% (04/22) Hypothyroidism CKD - Stage III CAD GERD Chronic back pain Diverticulosis HTN Atrophic vaginitis (? lichen sclerosis) Plan At this time, would have her continue with the clobetasol cream and make sure that she is gentle with wiping and keep the area clean and dry. Will reexamine the area in a few days (and/or consult Dr. Beach) if she continues to have pain. If she develops other symptoms nurses should notify provider. - Physician Narrative Narrative: Date: 09/17/17 Time: 1812 Hospital Course Summary Disclaimer: The visit summary below is not to be considered part of the above Progress Note. Hospital Course: 09/16/17 - Hospitalist consult Agree with admissions to [facility] for psychiatric evaluation/tx. Continue her 1.5L fluid restriction and low phosphorous, low potassium diet for CKD. Carb controlled for DM. Accuchecks ac and hs - can DC after 1-2 days if sugars are nl. Hold cyanocobalamin given her elevated B12 level. Urine culture was ordered in ER. Patient has no urinary symptoms. Even if patient has growth on culture, this is likely asymptomatic bacteria and would likely not require treatment. Check CBC and BMP now. Consider decreasing or holding Losartan depending on potassium level today. Continue clobetasol to vulvar area BID through 10/14/17. Pt has allergy listed to ASA but she takes a daily baby ASA per [facility]. Will continue. Hospitalist service will follow patient throughout her stay. Thank you for the consult. Care to return to Dr. Brady on dismissal. 09/17/17 Psych- Pt reports feeling more depressed today. Requesting Ativan. Continue current care. Will assess need for two antipsychotics 09/17/17 Hospitalist Patient has developed vulvar pain following wiping after using the bathroom. Patient with atrophic vaginitis and recent vulvar biopsy. Area examined with no significant findings. Biopsy site is healing nicely. At this time, would have her continue with the clobetasol cream and make sure that she is gentle with wiping and keep the area clean and dry. Will reexamine the area in a few days (and/or consult Dr. Beach) if she continues to have pain. If she develops other symptoms nurses should notify provider.
[2017-09-17] MEDS: SYSTANE EYE DROPS 0.7ml EACH EYE SCH (20:12)
[2017-09-17] MEDS: DOCUSATE SODIUM 100 MG CAPSULE PO SCH (20:12)
[2017-09-17] MEDS: GABAPENTIN 300 MG CAPSULE PO SCH (20:12)
[2017-09-17] MEDS: ACETAMINOPHEN 500 MG TABLET PO SCH (20:12)
[2017-09-18] MEDS: AQUAPHOR TOPICAL OINTMENT 52.5 G TUBE TP SCH ×5 (01:48→20:05)
[2017-09-18] MEDS: CLOBETASOL 0.05% CREAM 15gm TOP SCH ×4 (01:49→20:04)
[2017-09-18] MEDS: PANTOPRAZOLE 40 MG TABLET PO SCH (05:45)
[2017-09-18] MEDS: LEVOTHYROXINE 25 MCG TABLET PO SCH (05:45)
[2017-09-18] MEDS: LEVOTHYROXINE 200 MCG TABLET PO SCH (05:46)
[2017-09-18] MEDS: HYDROCODONE/APAP 5mg/325mg TABLET PO PRN ×2 (05:47→14:10)
[2017-09-18] MEDS: ZIPRASIDONE 40 MG CAPSULE PO SCH ×2 (08:10→20:06)
[2017-09-18] MEDS: PROPRANOLOL LA 80 MG CAPSULE PO SCH ×2 (08:11→20:06)
[2017-09-18] MEDS: LYSINE 500 MG TABLET PO SCH ×2 (08:11→20:08)
[2017-09-18] MEDS: LORazepam 0.5 MG TABLET PO SCH (08:11)
[2017-09-18] MEDS: HYDRALAZINE 10 MG TABLET PO SCH ×2 (08:11→17:34)
[2017-09-18] MEDS: ASPIRIN *EC* 81 MG TABLET PO SCH (08:11)
[2017-09-18] MEDS: ESCITALOPRAM 20 MG TABLET PO SCH (08:11)
[2017-09-18] MEDS: QUETIAPINE 100 MG TABLET PO SCH ×2 (08:11→20:08)
[2017-09-18] MEDS: POLYETHYL GLYCOL 3350 17gm PACKET PO SCH (08:12)
[2017-09-18] MEDS: MULTI-VITAMIN + MINERAL TABLET PO SCH (08:12)
--- NOTE | 2017-09-18 11:46 | Neuropsych Progress Note ---
[facility] Subjective Date: 09/18/17 - Sujective/Severity of Illness Medications: Acetaminophen (Tylenol) 500 mg PO Q6H PRN PRN Reason: Pain Acetaminophen (Tylenol) 1,000 mg PO [facility] Last Admin: 09/17/17 20:12 Dose: 1,000 mg Hydrocodone Bitart/Acetaminophen ([place] 5/325) 1 tab PO TID PRN PRN Reason: Pain Last Admin: 09/18/17 05:47 Dose: 1 tab Al Hydroxide/Mg Hydroxide (Maalox Plus) 30 ml PO BID PRN PRN Reason: Indigestion Aspirin (Ecotrin) 81 mg PO DAILY [facility] Last Admin: 09/18/17 08:11 Dose: 81 mg Bismuth Subsalicylate (Pepto-Bismol) 524 mg PO QID PRN PRN Reason: Indigestion Last Admin: 09/18/17 10:37 Dose: 524 mg Calcium Carbonate (Tums) 250 mg PO TID PRN PRN Reason: Gastrointestinal upset Cholecalciferol (Vit. D-3) 1,000 unit PO DAILY [facility] Last Admin: 09/18/17 08:11 Dose: 1,000 unit Clobetasol Propionate (Temovate Cream) 1 applic TOP BID [facility] Last Admin: 09/18/17 08:12 Dose: 1 applic Docusate Sodium (Colace) 100 mg PO [facility] Last Admin: 09/17/17 20:12 Dose: 100 mg Emollient Ointment (Aquaphor) 1 applic TP TID [facility] Last Admin: 09/18/17 08:12 Dose: 1 applic Escitalopram Oxalate (Lexapro) 20 mg PO DAILY [facility] Last Admin: 09/18/17 08:11 Dose: 20 mg Fluticasone Propionate (Flonase) 2 spray EA NOSTRIL DAILY PRN PRN Reason: Rhinitis Gabapentin (Neurontin) 300 mg PO [facility] Last Admin: 09/17/17 20:12 Dose: 300 mg Guaifenesin/Dextromethorphan (Robitussin Dm) 10 ml PO Q4H PRN PRN Reason: Cough Haloperidol (Haldol) 0.5 mg PO Q6H PRN PRN Reason: Extreme agitation Haloperidol Lactate (Haldol) 0.5 mg IM Q6H PRN PRN Reason: Extreme agitation Hydralazine HCl (Apresoline) 10 mg PO BIDWM [facility] Last Admin: 09/18/17 08:11 Dose: 10 mg Hydrocortisone (Cortizone-10 Cream) 1 applic TOP TID PRN PRN Reason: Itching Hydroxyzine HCl (Atarax) 25 mg PO TID PRN PRN Reason: Itching Last Admin: 09/16/17 16:01 Dose: 25 mg Levothyroxine Sodium (Synthroid) 25 mcg PO ACB [facility] Last Admin: 09/18/17 05:45 Dose: 25 mcg Levothyroxine Sodium (Synthroid) 200 mcg PO ACB [facility] Last Admin: 09/18/17 05:46 Dose: 200 mcg Lorazepam (Ativan) 0.5 mg PO Q6H PRN PRN Reason: Extreme agitation Last Admin: 09/16/17 21:59 Dose: 0.5 mg Lorazepam (Ativan Inj) 0.5 mg IM Q6H PRN PRN Reason: Extreme agitation Lorazepam (Ativan) 0.5 mg PO DAILY [facility] Last Admin: 09/18/17 08:11 Dose: 0.5 mg Losartan Potassium (Cozaar) 50 mg PO DAILY [facility] Last Admin: 09/16/17 08:42 Dose: 50 mg Lysine Acetate (L-Lysine) 1,000 mg PO BID [facility] Last Admin: 09/18/17 08:11 Dose: 1,000 mg Multivitamins/Minerals (Therapeutic - M) 1 tab PO DAILY [facility] Last Admin: 09/18/17 08:12 Dose: 1 tab Pantoprazole Sodium (Protonix Tab) 40 mg PO ACB [facility] Last Admin: 09/18/17 05:45 Dose: 40 mg Polyethyl Glycol/Propylene Glycol (Systane Eye Drops) 1 drop EACH EYE BID PRN PRN Reason: Dry eyes Polyethyl Glycol/Propylene Glycol (Systane Eye Drops) 1 drop EACH EYE HS [facility] Last Admin: 09/17/17 20:12 Dose: 1 drop Polyethylene Glycol (Miralax) 17 gm PO DAILY [facility] Last Admin: 09/18/17 08:12 Dose: 17 gm Propranolol HCl (Inderal La) 160 mg PO BID [facility] Last Admin: 09/18/17 08:11 Dose: 160 mg Quetiapine Fumarate (Seroquel) 100 mg PO DAILY [facility] Last Admin: 09/18/17 08:11 Dose: 100 mg Quetiapine Fumarate (Seroquel) 300 mg PO HS [facility] Last Admin: 09/17/17 20:12 Dose: 300 mg Simethicone (Mylicon) 80 mg PO QID PRN PRN Reason: Gas Ziprasidone (Geodon) 80 mg PO BID [facility] Last Admin: 09/18/17 08:10 Dose: 80 mg Subjective: Pt seen and chart examined. Nursing reports pt is doing well. Sleeping well and having a good appetite. On face to face the pt states she is feeling better today. She reports her mood is improved and her anxiety is better controlled. She denies any paranoia. She reports tolerating her meds well and feels she is back near her baseline. Start Time: 11:00 Stop Time: 11:15 Mental Status Exam Vitals: Last Vital Signs Temp 96.5 F L 09/18/17 08:00 Pulse 58 L 09/18/17 08:00 Resp 20 09/18/17 08:00 BP 147/87 H 09/18/17 08:00 Pulse Ox 95 09/18/17 08:00 Height: 1.6 m Weight: 106.6 kg - Mental Status Exam Muscle Strength/Tone: Normal Dressing: Casual Grooming: Fair Attitude: Cooperative Motor Activity: Retardation Eye Contact: Poor Speech: Slowed Volume: Soft Rhythm: Appropriate Rhythm Orientation: Oriented X4 Mood: Depressed Rate of Thoughts: Delayed (may be due to effort rather than ability) Thought Organization: Organized, [place] Associations: Intact Abstract Reasoning: Poor abstract reasoning Thought Content: Ruminations, Helplessness, Paranoia Perception/Psychotic: Perception Normal Fund of Knowledge: Other (Below average at baseline) Memory: Other (Unclear what patient's baseline is) Suicidal Ideation: Denies Homicidal Ideation: Denies Insight: Limited Judgement: Limited Impulse Control: Fair - Laboratory Result Diagrams: 09/17/17 06:54 09/17/17 06:54 Laboratory Results - last 24 hr 09/17/17 09/17/17 09/17/17 11:47 17:06 19:58 Glucometer 179 149 162 09/18/17 05:55 Glucometer 131 Assessment and Plan (1) Schizophreniform disorder Current visit: Yes Status: Acute Hospital Course Summary Disclaimer: The visit summary below is not to be considered part of the above Progress Note. Hospital Course: 09/16/17 - Hospitalist consult Agree with admissions to [facility] for [facility] evaluation/tx. Continue her 1.5L fluid restriction and low phosphorous, low potassium diet for CKD. Carb controlled for DM. Accuchecks ac and hs - can DC after 1-2 days if sugars are nl. Hold cyanocobalamin given her elevated B12 level. Urine culture was ordered in ER. Patient has no urinary symptoms. Even if patient has growth on culture, this is likely asymptomatic bacteria and would likely not require treatment. Check CBC and BMP now. Consider decreasing or holding Losartan depending on potassium level today. Continue clobetasol to vulvar area BID through 10/14/17. Pt has allergy listed to ASA but she takes a daily baby ASA per [facility]. Will continue. Hospitalist service will follow patient throughout her stay. Thank you for the consult. Care to return to Dr. Brady on dismissal. 09/17/17 Psych- Pt reports feeling more depressed today. Requesting Ativan. Continue current care. Will assess need for two antipsychotics 09/17/17 Hospitalist Patient has developed vulvar pain following wiping after using the bathroom. Patient with atrophic vaginitis and recent vulvar biopsy. Area examined with no significant findings. Biopsy site is healing nicely. At this time, would have her continue with the clobetasol cream and make sure that she is gentle with wiping and keep the area clean and dry. Will reexamine the area in a few days (and/or consult Dr. Beach) if she continues to have pain. If she develops other symptoms nurses should notify provider. 09/18/17 Psych- Pt doing better. Will defer antipsychotic use to Dr. Griffin. Continue current care
[2017-09-18] MEDS: LORazepam 0.5 MG TABLET PO PRN (14:17)
--- NOTE | 2017-09-18 16:08 | Progress Note ---
Progress Note: Mrs. Byrd was seen briefly while resting in her room. She reported that she had some abdominal cramping earlier in the day and that she's had several bowel movements. She went on to describe typical irritable bowel pattern and that she generally will not have a bowel movement for several days and then have multiple bowel movements for several days; currently she is day 2 of having multiple bowel movements. She's been eating without difficulty and denied dyspnea or lightheadedness. 96.5, 147/87 Appears comfortable, calm Respirations nonlabored, good airflow Regular rhythm Abdomen soft, nontender, no guarding Hyperkalemia Type 2 diabetes mellitus CKD-stage IV HTN IBS Vulvar pain/atrophic vaginitis Blood sugars unremarkable-monitor when necessary Renal function stable, potassium improved Blood pressures modestly elevated, losartan remains on hold. We'll contact Dr. Moralez tomorrow regarding dosing.
[2017-09-18] MEDS: ACETAMINOPHEN 500 MG TABLET PO SCH (20:05)
[2017-09-18] MEDS: SYSTANE EYE DROPS 0.7ml EACH EYE SCH (20:06)
[2017-09-18] MEDS: DOCUSATE SODIUM 100 MG CAPSULE PO SCH (20:07)
[2017-09-18] MEDS: GABAPENTIN 300 MG CAPSULE PO SCH (20:07)
[2017-09-19] MEDS: PANTOPRAZOLE 40 MG TABLET PO SCH (08:53)
[2017-09-19] MEDS: LEVOTHYROXINE 25 MCG TABLET PO SCH (08:53)
[2017-09-19] MEDS: LEVOTHYROXINE 200 MCG TABLET PO SCH (08:53)
[2017-09-19] MEDS: ESCITALOPRAM 20 MG TABLET PO SCH (08:54)
[2017-09-19] MEDS: ASPIRIN *EC* 81 MG TABLET PO SCH (08:54)
[2017-09-19] MEDS: CLOBETASOL 0.05% CREAM 15gm TOP SCH ×3 (08:54→21:54)
[2017-09-19] MEDS: AQUAPHOR TOPICAL OINTMENT 52.5 G TUBE TP SCH ×4 (08:54→21:54)
[2017-09-19] MEDS: HYDRALAZINE 10 MG TABLET PO SCH ×2 (08:54→17:27)
[2017-09-19] MEDS: PROPRANOLOL LA 80 MG CAPSULE PO SCH ×3 (08:55→21:55)
[2017-09-19] MEDS: QUETIAPINE 100 MG TABLET PO SCH ×3 (08:55→21:55)
[2017-09-19] MEDS: LYSINE 500 MG TABLET PO SCH ×3 (08:55→21:55)
[2017-09-19] MEDS: ZIPRASIDONE 40 MG CAPSULE PO SCH ×3 (08:55→21:56)
[2017-09-19] MEDS: LORazepam 0.5 MG TABLET PO SCH (08:55)
[2017-09-19] MEDS: MULTI-VITAMIN + MINERAL TABLET PO SCH (08:55)
[2017-09-19] MEDS: POLYETHYL GLYCOL 3350 17gm PACKET PO SCH ×3 (09:25→21:55)
--- NOTE | 2017-09-19 16:01 | Neuropsych Progress Note ---
[facility] Subjective Date: 09/20/17 - Sujective/Severity of Illness Medications: Acetaminophen (Tylenol) 500 mg PO Q6H PRN PRN Reason: Pain Acetaminophen (Tylenol) 1,000 mg PO [facility] Last Admin: 09/18/17 20:05 Dose: 1,000 mg Hydrocodone Bitart/Acetaminophen ([place] 5/325) 1 tab PO TID PRN PRN Reason: Pain Last Admin: 09/18/17 05:47 Dose: 1 tab Al Hydroxide/Mg Hydroxide (Maalox Plus) 30 ml PO BID PRN PRN Reason: Indigestion Aspirin (Ecotrin) 81 mg PO DAILY [facility] Last Admin: 09/19/17 08:54 Dose: 81 mg Bismuth Subsalicylate (Pepto-Bismol) 524 mg PO QID PRN PRN Reason: Indigestion Last Admin: 09/18/17 10:37 Dose: 524 mg Calcium Carbonate (Tums) 250 mg PO TID PRN PRN Reason: Gastrointestinal upset Cholecalciferol (Vit. D-3) 1,000 unit PO DAILY [facility] Last Admin: 09/19/17 08:54 Dose: 1,000 unit Clobetasol Propionate (Temovate Cream) 1 applic TOP BID [facility] Last Admin: 09/19/17 08:54 Dose: 1 applic Docusate Sodium (Colace) 100 mg PO [facility] Last Admin: 09/18/17 20:07 Dose: 100 mg Emollient Ointment (Aquaphor) 1 applic TP TID [facility] Last Admin: 09/19/17 14:41 Dose: Not Given Escitalopram Oxalate (Lexapro) 20 mg PO DAILY [facility] Last Admin: 09/19/17 08:54 Dose: 20 mg Fluticasone Propionate (Flonase) 2 spray EA NOSTRIL DAILY PRN PRN Reason: Rhinitis Gabapentin (Neurontin) 300 mg PO [facility] Last Admin: 09/18/17 20:07 Dose: 300 mg Guaifenesin/Dextromethorphan (Robitussin Dm) 10 ml PO Q4H PRN PRN Reason: Cough Haloperidol (Haldol) 0.5 mg PO Q6H PRN PRN Reason: Extreme agitation Haloperidol Lactate (Haldol) 0.5 mg IM Q6H PRN PRN Reason: Extreme agitation Hydralazine HCl (Apresoline) 10 mg PO BIDWM [facility] Last Admin: 09/19/17 08:54 Dose: 10 mg Hydrocortisone (Cortizone-10 Cream) 1 applic TOP TID PRN PRN Reason: Itching Hydroxyzine HCl (Atarax) 25 mg PO TID PRN PRN Reason: Itching Last Admin: 09/16/17 16:01 Dose: 25 mg Levothyroxine Sodium (Synthroid) 25 mcg PO ACB [facility] Last Admin: 09/19/17 08:53 Dose: 25 mcg Levothyroxine Sodium (Synthroid) 200 mcg PO ACB [facility] Last Admin: 09/19/17 08:53 Dose: 200 mcg Lorazepam (Ativan) 0.5 mg PO Q6H PRN PRN Reason: Extreme agitation Last Admin: 09/18/17 14:17 Dose: 0.5 mg Lorazepam (Ativan Inj) 0.5 mg IM Q6H PRN PRN Reason: Extreme agitation Lorazepam (Ativan) 0.5 mg PO DAILY [facility] Last Admin: 09/19/17 08:55 Dose: 0.5 mg Losartan Potassium (Cozaar) 50 mg PO DAILY [facility] Last Admin: 09/16/17 08:42 Dose: 50 mg Lysine Acetate (L-Lysine) 1,000 mg PO BID [facility] Last Admin: 09/19/17 08:55 Dose: 1,000 mg Multivitamins/Minerals (Therapeutic - M) 1 tab PO DAILY [facility] Last Admin: 09/19/17 08:55 Dose: 1 tab Pantoprazole Sodium (Protonix Tab) 40 mg PO ACB [facility] Last Admin: 09/19/17 08:53 Dose: 40 mg Polyethyl Glycol/Propylene Glycol (Systane Eye Drops) 1 drop EACH EYE BID PRN PRN Reason: Dry eyes Polyethyl Glycol/Propylene Glycol (Systane Eye Drops) 1 drop EACH EYE HS [facility] Last Admin: 09/18/17 20:06 Dose: 1 drop Polyethylene Glycol (Miralax) 17 gm PO DAILY [facility] Last Admin: 09/19/17 09:25 Dose: Not Given Propranolol HCl (Inderal La) 160 mg PO BID [facility] Last Admin: 09/19/17 08:55 Dose: 160 mg Quetiapine Fumarate (Seroquel) 100 mg PO DAILY [facility] Last Admin: 09/19/17 08:55 Dose: 100 mg Quetiapine Fumarate (Seroquel) 300 mg PO HS [facility] Last Admin: 09/18/17 20:08 Dose: 300 mg Simethicone (Mylicon) 80 mg PO QID PRN PRN Reason: Gas Ziprasidone (Geodon) 80 mg PO BID [facility] Last Admin: 09/19/17 08:55 Dose: 80 mg Subjective: Patient seen and chart reviewed. Case discussed with treatment team. On interview, patient is in her room listening to a book on tape. She state that she feels much better since admission because of the change in environment , but feels ready to go back to her facility. She says that things like reading and listening to books on tape help improve her mood. Patient denies any SI, HI or AVH. Patient denies any adverse side effects related to psychotropic medications. Nursing staff report patient can be slightly irritable at times but is redirectable and has not had any problematic behaviors on the unit. Patient has been adherent with medications. Patient slept 8 hours overnight. VSS. Patient is eating well. Psychotropic PRNs required in the past 24 hours: lorazepam 0.5mg PO x2 in past 24 hours due to patient's request because she was feeling anxious. Patient has not utilized any PRN hydroxyzine. Start Time: 11:40 Stop Time: 12:00 Mental Status Exam Vitals: Last Vital Signs Temp 97.8 F 09/19/17 08:00 Pulse 65 09/19/17 08:00 Resp 16 09/19/17 08:00 BP 139/75 09/19/17 08:00 Pulse Ox 92 09/19/17 08:00 Height: 1.6 m Weight: 106.6 kg - Mental Status Exam Muscle Strength/Tone: Normal Dressing: Casual Grooming: Fair Attitude: Cooperative Motor Activity: Normal Eye Contact: Good Speech: Normal Volume: Soft Rhythm: Appropriate Rhythm Orientation: Oriented X4 Mood: Neutral Affect: Relaxed Rate of Thoughts: Appropriate Rate Thought Organization: Organized, [place] Associations: Intact Abstract Reasoning: Poor abstract reasoning Thought Content: Helplessness (with staff at times) Perception/Psychotic: Perception Normal Language: Naming Intact Fund of Knowledge: Karel aware current events Memory: Grossly Intact Suicidal Ideation: Denies Homicidal Ideation: Denies Insight: Fair Judgement: Fair Impulse Control: Fair - Laboratory Result Diagrams: 09/17/17 06:54 09/19/17 06:51 Laboratory Results - last 24 hr 09/19/17 06:51 Turbidity < 20 Sodium 134 Potassium 5.6 H Chloride 100 Carbon Dioxide 26 Anion Gap 8 BUN 32.0 H Creatinine 1.9 H GFR Calculation 26 BUN/Creatinine Ratio 17 Glucose 121 H Calculated Osmolality 266 Calcium 8.6 Icterus Index < 2 Specimen Hemolysis < 15 Assessment and Plan (1) Schizophreniform disorder Problem details: Hx of schizoaffective disorder, depressive type Other medical conditions: Chest pain, atypical Vulvar pain-onset 09/17/17 (accidentally self-inflicted while wiping) Hyperkalemia - POA Hypocalcemia - POA Normocytic anemia - POA Type 2 DM - A1C 7% (04/22) Hypothyroidism CKD - Stage III CAD GERD Chronic back pain Diverticulosis HTN Atrophic vaginitis (? lichen sclerosis) Current visit: Yes Status: Acute Will check vitamin B12, folate, TSH with reflex free T4 as not done upon admission. Patient can discharge back to facility and f/u with outpatient providers. Suggest they develop behavioral plan or crisis plan as patient reportedly often requests to go to hospital when she feels she is not getting enough attention. Patient has been resistant to any medication changes though mood and behavior have been fairly stable while here. Hospital Course Summary Disclaimer: The visit summary below is not to be considered part of the above Progress Note. Hospital Course: 09/16/17 - Hospitalist consult Agree with admissions to [facility] for psychiatric evaluation/tx. Continue her 1.5L fluid restriction and low phosphorous, low potassium diet for CKD. Carb controlled for DM. Accuchecks ac and hs - can DC after 1-2 days if sugars are nl. Hold cyanocobalamin given her elevated B12 level. Urine culture was ordered in ER. Patient has no urinary symptoms. Even if patient has growth on culture, this is likely asymptomatic bacteria and would likely not require treatment. Check CBC and BMP now. Consider decreasing or holding Losartan depending on potassium level today. Continue clobetasol to vulvar area BID through 10/14/17. Pt has allergy listed to ASA but she takes a daily baby ASA per NH. Will continue. Hospitalist service will follow patient throughout her stay. Thank you for the consult. Care to return to Dr. Brady on dismissal. 09/17/17 Psych- Pt reports feeling more depressed today. Requesting Ativan. Continue current care. Will assess need for two antipsychotics 09/17/17 Hospitalist Patient has developed vulvar pain following wiping after using the bathroom. Patient with atrophic vaginitis and recent vulvar biopsy. Area examined with no significant findings. Biopsy site is healing nicely. At this time, would have her continue with the clobetasol cream and make sure that she is gentle with wiping and keep the area clean and dry. Will reexamine the area in a few days (and/or consult Dr. Beach) if she continues to have pain. If she develops other symptoms nurses should notify provider. 09/18/17 Psych- Pt doing better. Will defer antipsychotic use to Dr. Griffin. Continue current care. 09/19/17 Psych: Will check vitamin B12, folate, TSH with reflex free T4 as not done upon admission. Patient can discharge back to facility and f/u with outpatient providers. Suggest they develop behavioral plan or crisis plan as patient reportedly often requests to go to hospital when she feels she is not getting enough attention. Patient has been resistant to any medication changes though mood and behavior have been fairly stable while here.
[2017-09-19] MEDS: LORazepam 0.5 MG TABLET PO PRN (16:33)
--- NOTE | 2017-09-19 16:35 | Extended Care Facility Orders ---
Admission Orders Admit to:: [facility] Allergies/Adverse Reactions: Allergies aspirin Allergy (Intermediate, Verified 09/15/17 19:29) Rash metoclopramide [From Reglan] Allergy (Intermediate, Verified 09/15/17 19:29) Sleepiness amoxicillin [From Augmentin] Allergy (Verified 09/15/17 19:33) clavulanic acid [From Augmentin] Allergy (Verified 09/15/17 19:33) lisinopril Adverse Reaction (Intermediate, Verified 09/15/17 19:29) Cough omeprazole Adverse Reaction (Intermediate, Verified 09/15/17 19:29) Nausea sulfamethoxazole [From Bactrim] Adverse Reaction (Intermediate, Verified 19:29) trimethoprim [From Bactrim] Adverse Reaction (Intermediate, Verified 09/15/17 19 :29) Admitting Diagnosis: Dementia with behavorial disturbance Admitting Physician: Linsey Griffin MD Attending Physician: Linsey Griffin MD Code Status: Do Not Resuscitate Anticiapted Length of Stay: greater than 30 days Rehab Potential: fair Rehab Prognosis: fair Diet: 09/16/17 Dinner Consistent Carbohydrate Diet [DIET] Calorie Level: 2000 Fluid Restriction: FR 1500ML Other Diet Modifiers: LOWPOT May have flu vaccine: Yes Evaluations/Treatment: Psychiatric Assisted Certification: I certify that SNF services are required to be given on an Inpatient basis because of the patients need for long term care on a continuing basis for the condition(s) for which he/she received inpatient hospital services prior to his/her transfer to the SNF. SNF inpatient care is necessary for the following reasons Indication for Assisted: Not Applicable - Additional Information In Event of Arrest: Do Not Start CPR Resident is Aware of Diagnosis: Yes Referrals: Sana Mota [Other] (SOFÍA Schilling on 09/21/17 at 2:00 pm for Therapy appt. [facility] [address] [place] [id number]) Jessica Brady MD [Physician] - (Dr. Erika Brady on 10/04/17 at 3:00 pm for Hosp. follow-up. [facility] [place] [id number]) Honorio Gupta DO [Physician] - (Dr. Louis Gupta on 09/23/17 at 11:30 am for Mental Health/Med Management follow- up. [place] [facility] [address] [id number])
--- NOTE | 2017-09-19 17:35 | Progress Note ---
- Date 09/19/17 Subjective: Abeba was seen during supper. Earlier I was called b/c she c/o chest pain. By the time I arrived, she stated it was gone. She added that this happens "all the time", especially "when I don't get my Ativan soon enough". She insists "I' m fine" and was a bit upset that staff keeps asking her how she's feeling. She denies chest pain, dizziness, nausea, or vomiting. She asked about her EKG, then told me that it will be normal. Objective Vital signs: Temperature 97.4 F 09/19/17 16:00 Pulse Rate 62 09/19/17 16:00 Respiratory Rate 16 09/19/17 16:00 Blood Pressure 152/84 H 09/19/17 16:00 Pulse Oximetry 93 09/19/17 16:00 Height/Weight/BMI: Height 1.6 m Weight 106.6 kg Body Mass Index 41.6 - Constitutional Present: no acute distress, well nourished, well developed - Routine HEENT Exam Head: Present: normocephalic Eye: Present: PERRL. Absent: conjunctival icterus, scleral injection - Routine Respiratory Exam Present: CTA bilaterally - Routine Cardiovascular Exam Present: RRR, S1, S2 - Routine Abdominal Exam Present: normoactive bowel sounds, distended - Routine Extremities Exam Present: edema (trace BLE) - Routine Skin Exam Present: intact, dry, warm - Routine Neurological Exam Present: alert, normal speech - Routine Psychiatric Exam Present: normal thought process Results - Labs CBC & Chem 7: 09/17/17 06:54 09/19/17 06:51 Assessment and Plan (1) Paranoia Current visit: Yes Status: Acute Assessment and Plan: Outpatient labs from 08/03/17: Hemoglobin 10.5, hematocrit 32.0, platelet 217 Sodium 136, potassium 5.4, Creatinine 1.69, albumin 21, calcium 8.5 Assessment Chest pain, atypical Vulvar pain-onset 09/17/17 (accidentally self-inflicted while wiping) Schizoaffective d/o w/ increasing paranoia Hyperkalemia - POA Hypocalcemia - POA Normocytic anemia - POA Type 2 DM - A1C 7% (04/22) Hypothyroidism CKD - Stage III CAD GERD Chronic back pain Diverticulosis HTN Atrophic vaginitis (? lichen sclerosis) Plan Chest pain was brief in nature. EKG was reviewed, showing sinus nia without acute ST segment changes. Will check troponin x3. Hyperkalemia persists with K of 5.6. Renal function diminished but stable with creatinine of 1.9. Continue low potassium diet. Discussed with nursing and with Dr. Sullivan. Resuscitation Status: Do Not Resuscitate - Physician Narrative Physician: Katty Sullivan MD Narrative: Date: 09/19/17 Time: [address] Moralez today regarding hyperkalemia and BP medications. He recommended discontinuation of losartan at this time given increase in K from baseline (about 5.4) and use of amlodipine if second BP medication is needed as appears likely. Start amlodipine 5 mg daily in am. Hospital Course Summary Disclaimer: The visit summary below is not to be considered part of the above Progress Note. Hospital Course: 09/16/17 - Hospitalist consult Agree with admissions to [facility] for psychiatric evaluation/tx. Continue her 1.5L fluid restriction and low phosphorous, low potassium diet for CKD. Carb controlled for DM. Accuchecks ac and hs - can DC after 1-2 days if sugars are nl. Hold cyanocobalamin given her elevated B12 level. Urine culture was ordered in ER. Patient has no urinary symptoms. Even if patient has growth on culture, this is likely asymptomatic bacteria and would likely not require treatment. Check CBC and BMP now. Consider decreasing or holding Losartan depending on potassium level today. Continue clobetasol to vulvar area BID through 10/14/17. Pt has allergy listed to ASA but she takes a daily baby ASA per NH. Will continue. Hospitalist service will follow patient throughout her stay. Thank you for the consult. Care to return to Dr. Brady on dismissal. 09/17/17 Psych- Pt reports feeling more depressed today. Requesting Ativan. Continue current care. Will assess need for two antipsychotics 09/17/17 Hospitalist Patient has developed vulvar pain following wiping after using the bathroom. Patient with atrophic vaginitis and recent vulvar biopsy. Area examined with no significant findings. Biopsy site is healing nicely. At this time, would have her continue with the clobetasol cream and make sure that she is gentle with wiping and keep the area clean and dry. Will reexamine the area in a few days (and/or consult Dr. Beach) if she continues to have pain. If she develops other symptoms nurses should notify provider. 09/18/17 Psych- Pt doing better. Will defer antipsychotic use to Dr. Griffin. Continue current care 09/19/17 Hospitalist Chest pain was brief in nature. EKG was reviewed, showing sinus nia without acute ST segment changes. Will check troponin x3. Hyperkalemia persists with K of 5.6. Renal function diminished but stable with creatinine of 1.9. Continue low potassium diet.
[2017-09-19] MEDS: ACETAMINOPHEN 500 MG TABLET PO SCH ×2 (19:42→21:54)
[2017-09-19] MEDS: DOCUSATE SODIUM 100 MG CAPSULE PO SCH ×2 (19:44→21:55)
[2017-09-19] MEDS: GABAPENTIN 300 MG CAPSULE PO SCH ×2 (19:45→21:55)
[2017-09-19] MEDS: SYSTANE EYE DROPS 0.7ml EACH EYE SCH ×2 (19:45→21:55)
[2017-09-19 20:04] VITALS: O2SAT 97
[2017-09-19] MEDS: HYDROCODONE/APAP 5mg/325mg TABLET PO PRN (21:44)
[2017-09-20] MEDS: LEVOTHYROXINE 25 MCG TABLET PO SCH (07:42)
[2017-09-20] MEDS: LEVOTHYROXINE 200 MCG TABLET PO SCH (07:42)
[2017-09-20] MEDS: PANTOPRAZOLE 40 MG TABLET PO SCH (07:43)
[2017-09-20] MEDS: MULTI-VITAMIN + MINERAL TABLET PO SCH (08:21)
[2017-09-20] MEDS: HYDRALAZINE 10 MG TABLET PO SCH (08:21)
[2017-09-20] MEDS: QUETIAPINE 100 MG TABLET PO SCH (08:21)
[2017-09-20] MEDS: LYSINE 500 MG TABLET PO SCH (08:21)
[2017-09-20] MEDS: LORazepam 0.5 MG TABLET PO SCH (08:21)
[2017-09-20] MEDS: ESCITALOPRAM 20 MG TABLET PO SCH (08:21)
[2017-09-20] MEDS: ZIPRASIDONE 40 MG CAPSULE PO SCH (08:21)
[2017-09-20] MEDS: AQUAPHOR TOPICAL OINTMENT 52.5 G TUBE TP SCH (08:22)
[2017-09-20] MEDS: ASPIRIN *EC* 81 MG TABLET PO SCH (08:22)
[2017-09-20] MEDS: CLOBETASOL 0.05% CREAM 15gm TOP SCH (08:22)
[2017-09-20] MEDS: PROPRANOLOL LA 80 MG CAPSULE PO SCH (08:25)
[2017-09-20 08:27] VITALS: BP 133/78; PULSE 58; RESP 16; TEMP 96.9
[2017-09-20] MEDS ORDERED: AMLODIPINE 5 MG TABLET PO SCH (09:00)
[2017-09-20] MEDS: HYDROCODONE/APAP 5mg/325mg TABLET PO PRN (09:56)
== END 2017-09-20 10:55 | DRG 885 ==
LOC: ED 19:08 → GEN 21:00
PROVIDERS: ADMIT Psychiatry & Neurology Psychiatry; ATTEND Psychiatry & Neurology Psychiatry